=== PATIENT | male | born 1960 | race Caucasian/White ===

== ENCOUNTER 2016-08-15 09:02 | Emergency (ER) | payer MEDICAID ==
[2016-08-15 09:08] VITALS: BP 111/66; PULSE 70; RESP 20; TEMP 97.7
[2016-08-15] MEDS ORDERED: ORPHENADRINE 30 MG/ML 2 ML VIAL IM STA (09:28)
[2016-08-15] MEDS ORDERED: KETOROLAC 60 MG/2 ML VIAL IM STA (09:28)
--- NOTE | 2016-08-15 10:34 | CT ---
EXAMINATION TYPE: CT lumbar spine wo con DATE OF EXAM: 08/15/2016 10:13 AM COMPARISON: MRI lumbar spine 04-18-2014. HISTORY: Low back and bilat leg pain and cramping post trauma yesterday. History of fusion. CT DLP: 889.5 mGycm Automated exposure control for dose reduction was used. FINDINGS: There are 5 lumbar-type vertebra identified. Lumbar spine shows satisfactory alignment without eviden ce of acute fracture or dislocation. There is interval surgery with posterior fusion hardware and dis c spacer noted L4-L5 level. There is more prominent disc herniation L5-S1 level seen on sagittal imag es. Vertebral body heights are fairly well-maintained. There is persistent mild disc space narrowing posteriorly L3-L4 level. There is mild multilevel anterior and lateral spurring. Review of axial images shows a T12-L1, L1-L2, and L2-L3 level to remain within normal limits. Axial images at L3-L4 level show mild broad disc bulge mildly effacing anterior thecal sac mild facet degenerative changes bilaterally. There may be slight progression from prior MRI study noted. Axial images at L4-L5 level show artifact from post surgical change. Spinal canal is felt preserved. There is likely persistent mild to moderate bilateral neural foraminal narrowing. Axial images at L5-S1 level show left paracentral disc protrusion effacing anterolateral thecal sac a nd axial image 70 more prominent versus prior study. There is mild to moderate left-sided neural fora meghan narrowing. Right-sided neural foramen is patent Some prominence of common bile duct near coronal image 8 is unchanged from prior MRI. There is mild t o moderate calcified atherosclerotic change of distal abdominal aorta and pelvic branch vessels. IMPRESSION: NO ACUTE FRACTURE OR DISLOCATION IN THE LUMBAR SPINE. INTERVAL SURGERY L4-L5 LEVEL WITH DISCECTOMY. M ORE PROMINENT DISC HERNIATION L5-S1 LEVEL IS NOW PRESENT.
--- NOTE | 2016-08-15 10:58 | ED ---
Back Pain HPI - General Chief Complaint: Back Pain/Injury Stated Complaint: back pain Time Seen by Provider: 08/15/16 09:23 Source: patient, RN notes reviewed Limitations: no limitations - History of Present Illness Initial Comments: 56-year-old male presents emergency with chief complaint of back pain. Patient is looking about her head and then all of a sudden had some back pain. This happened last night. Patient states that radiated down both legs. Patient denies any loss of bowel or bladder. Patient states that he hasn't had any nausea vomiting dizziness. Patient easily actual fall patient states he was just lifting. Patient does admit to a history of back surgery and states he is on a pain contract with the pain specialist. Patient states that he was concerned due to his increased pain and the fact this feels different than his typical pains without that he should be seen. Patient states is not currently having any other symptoms at this time. Patient denies any recent fever, chills , shortness of breath, chest pain, abdominal pain, nausea vomiting, numbness or tingling, dysuria or hematuria, constipation or diarrhea, headaches or visual changes, or any other current symptoms. - Related Data Home Medications Medication Instructions Recorded Confirmed Aspirin [Adult Low Dose Aspirin EC] 81 mg PO DAILY 07/09/16 08/15/16 Atorvastatin [Lipitor] 40 mg PO DAILY 07/09/16 08/15/16 Clopidogrel [Plavix] 75 mg PO DAILY 07/09/16 08/15/16 Diclofenac Sodium [Voltaren] 75 mg PO DAILY 07/09/16 08/15/16 Gabapentin [Neurontin] 600 mg PO BID 07/09/16 08/15/16 Gemfibrozil [Lopid] 600 mg PO AC-BID 07/09/16 08/15/16 Hydrocodone/Acetaminophen [Lorcet 1 tab PO QID 07/09/16 08/15/16 5-325 mg Tablet] Lisinopril [Zestril] 20 mg PO BID 07/09/16 08/15/16 Metoprolol Tartrate [Lopressor] 50 mg PO BID 07/09/16 08/15/16 Omeprazole [PriLOSEC] 40 mg PO AC-BRKFST 07/09/16 08/15/16 Spironolactone [Aldactone] 12.5 mg PO DAILY 07/09/16 08/15/16 amLODIPine [Norvasc] 5 mg PO BID 07/09/16 08/15/16 metFORMIN HCL [Glucophage] 500 mg PO BID 07/09/16 08/15/16 tiZANidine [Zanaflex] 8 mg PO Q8HR PRN 07/09/16 08/15/16 Pentosan Polysulfate Sodium 100 mg PO TID 08/15/16 08/15/16 [Elmiron] Previous Rx's Medication Instructions Recorded predniSONE 50 mg PO DAILY #5 tab 08/15/16 Allergies Allergy/AdvReac Type Severity Reaction Status Date / Time Penicillins Allergy Rash/Hives Verified 08/15/16 09:20 Review of Systems ROS Statement: Those systems with pertinent positive or pertinent negative responses have been documented in the HPI. ROS Other: All systems not noted in ROS Statement are negative. Past Medical History Past Medical History: Coronary Artery Disease (CAD), Diabetes Mellitus, GERD/ Reflux, Hyperlipidemia, Hypertension, Liver Disease, Myocardial Infarction (PA) , Osteoarthritis (OA) Additional Past Medical History / Comment(s): low back injury, tremors History of Any Multi-Drug Resistant Organisms: None Reported Past Surgical History: Back Surgery, Cholecystectomy, Heart Catheterization With Stent, Orthopedic Surgery Additional Past Surgical History / Comment(s): cardiac stent x 3, right shoulder , back sx-spinal fusion Past Psychological History: Anxiety Smoking Status: Current every day smoker Past Alcohol Use History: None Reported Past Drug Use History: None Reported General Exam - General Exam Comments Initial Comments: General: The patient is awake and alert, in no distress, and does not appear acutely ill. Eye: Pupils are equal, round and reactive to light, extra-ocular movements are intact; there is normal conjunctiva bilaterally. No signs of icterus. Ears, nose, mouth and throat: There are moist mucous membranes. Neck: The neck is supple, there is no tenderness. Cardiovascular: There is a regular rate and rhythm. No murmur, rub or gallop is appreciated. Respiratory: Lungs are clear to auscultation, respirations are non-labored, breath sounds are equal. No wheezes, stridor, rales, or rhonchi. Gastrointestinal: Soft, non-distended, non-tender abdomen without masses or organomegaly noted. There is no rebound or guarding present. No CVA tenderness. Bowel sounds are unremarkable. Back: There is no tenderness to palpation in the midline. Patient has tenderness in the left paraspinal region. There is no obvious deformity. No rashes noted. No saddle anesthesia. No loss of bowel or bladder function. Musculoskeletal: Normal ROM, no tenderness, There is no pedal edema. There is no calf tenderness or swelling. Sensation intact. Pulses equal bilaterally 2+. Neurologically intact. Neurological: CN II-XII intact, There are no obvious motor or sensory deficits. Coordination appears grossly intact. Speech is normal. Skin: Skin is warm and dry and no rashes or lesions are noted. Psychiatric: Cooperative, appropriate mood & affect, normal judgment. Limitations: no limitations Course Vital Signs 08/15/16 09:06 Temperature 97.7 F Pulse Rate 70 Respiratory 20 Rate Blood Pressure 111/66 O2 Sat by Pulse 99 Oximetry Medical Decision Making - Medical Decision Making 56-year-old male presents emergency with chief complaint of back pain. Patient has a history of back surgery. CT is reviewed that does show an increased disc herniation at L5 S1. This time patient received Toradol and Norflex vaccinations improved. We cannot give him narcotics around his activities and a pain contract. We will start patient on steroids. Discussed close follow-up with his doctor this all the patient's questions. He stated that he understood and he is in agreement with the plan. This will be discharged. Disposition Clinical Impression: Lumbar disc herniation Disposition: HOME SELF-CARE Condition: Stable Instructions: Acute Low Back Pain (ED), Lumbar Disc Herniation (ED), Lower Back Exercises (ED) Additional Instructions: Please use medication as discussed. Please follow up with family doctor if symptoms have not improved over the next two days. Please return to the emergency room if your symptoms increase or worsen or for any other concerns. Prescriptions: predniSONE 50 mg PO DAILY #5 tab Referrals: Nighat Henao MD [Primary Care Provider] - 1-2 days Time of Disposition: 11:06
== END 2016-08-15 11:30 | disposition home or self-care (01) ==
LOC: EC 09:02
DX: M51.26 Other intervertebral disc displacement, lumbar region (principal); I25.10 Atherosclerotic heart disease of native coronary artery without angina pectoris; I25.2 Old myocardial infarction; E11.9 Type 2 diabetes mellitus without complications; I10 Essential (primary) hypertension; E78.5 Hyperlipidemia, unspecified; M19.90 Unspecified osteoarthritis, unspecified site; K21.9 Gastro-esophageal reflux disease without esophagitis; K76.9 Liver disease, unspecified; Z79.82 Long term (current) use of aspirin; Z79.899 Other long term (current) drug therapy; Z79.02 Long term (current) use of antithrombotics/antiplatelets; Z79.84 Long term (current) use of oral hypoglycemic drugs; Z88.0 Allergy status to penicillin; Z98.890 Other specified postprocedural states; F17.200 Nicotine dependence, unspecified, uncomplicated; Z88.5 Allergy status to narcotic agent; Z98.1 Arthrodesis status
CPT/HCPCS: 72131; 96372 ×2; 99283; J2360; J1885

== ENCOUNTER 2016-09-12 07:31 | Day surgery (SDC) | payer MEDICAID ==
[2016-09-08 17:56] VITALS: BMI 30.1
[~2016-09-12 07:31] MED LIST: LACTATED RINGERS 1,000 ML IV SCH; LIDOCAINE 1% 20 ML VIAL (10MG/ML) FOR IV START INTRADERMA PRN
[2016-09-12 07:48] VITALS: TEMP 97.7
[2016-09-12] MEDS ORDERED: LIDOCAINE 1% 20 ML VIAL (10MG/ML) FOR IV START INTRADERMA ONE (08:04)
[2016-09-12] MEDS ORDERED: LIDOCAINE 1% INJ 10MG/ML (20 ML MDV) ONE (08:10)
[2016-09-12] MEDS ORDERED: PROPOFOL 10 MG/ML 20 ML VIAL IV ONE (08:10)
--- NOTE | 2016-09-12 08:25 | P.OP ---
Date of Procedure: 09/12/16 Preoperative Diagnosis: EPigastric pain Postoperative Diagnosis: Gastritis Duodentitis Procedure(s) Performed: EGD with biopsy Anesthesia: NINA Surgeon: Trina Mireles Pathology: other Condition: stable Disposition: PACU Indications for Procedure: Epigastric pain History of NSAID intake Diabetic Operative Findings: Mild gastritis, prominent in the body and antrum, No ulcers Stomach had bile , probably mild gastropareisis Mild duodneitis, no bedding Description of Procedure: 1. ESOPHAGOGASTRODUODENOSCOPY 2. BIOPSY USING COLD BIOPSY FORCEPS PROCEDURE DETAILS: A timeout was performed to verify the correct patient and correct procedure. Patient was on continuous vitals and pulse ox monitoring throughout the procedure. He was placed in lateral decubitus position and a bite block was inserted. A well-lubricated endoscope was passed orally. The esophagus was intubated without difficulty. The EGD was passed beyond the pylorus into the first and second portion of the duodenum. No normality is noted in the duodenum. Biopsies were taken from the duodenum, antrum, body, GE junction using cold biopsy forceps. The scope was retroflexed. There was no hiatal hernia or reflux esophagitis. No mass, ulcer or bleeding noted within the gastric lumen. The GE junction is measured at 38 cm from the incisors . The endoscope was gradually withdrawn. No abnormality identified in the esophagus.Patient tolerated the procedure well and was taken to post anesthesia care unit in stable condition.
[2016-09-12 08:35] LABS: Glucose,Whole Blood 108 mg/dL (75-99)
[2016-09-12 08:42] VITALS: BP 101/63
[2016-09-12 08:54] LABS: Glucose,Whole Blood 103 mg/dL (75-99)
[2016-09-12 08:56] VITALS: PULSE 57; RESP 18
== END 2016-09-12 09:00 | disposition home or self-care (01) ==
LOC: ORWHC2ENDO 07:31
PROVIDERS: ATTEND Surgery
DX: K29.50 Unspecified chronic gastritis without bleeding (principal); K29.80 Duodenitis without bleeding; K21.9 Gastro-esophageal reflux disease without esophagitis; I25.10 Atherosclerotic heart disease of native coronary artery without angina pectoris; I10 Essential (primary) hypertension; E78.5 Hyperlipidemia, unspecified; E11.9 Type 2 diabetes mellitus without complications; I25.2 Old myocardial infarction; F17.200 Nicotine dependence, unspecified, uncomplicated; Z88.0 Allergy status to penicillin; Z79.84 Long term (current) use of oral hypoglycemic drugs; Z79.02 Long term (current) use of antithrombotics/antiplatelets; Z79.899 Other long term (current) drug therapy; Z95.5 Presence of coronary angioplasty implant and graft
CPT/HCPCS: 43239; 88305; 88342; J2001; J2704

== ENCOUNTER 2016-12-18 16:25 | Emergency (ER) | payer MEDICAID ==
[2016-12-18 16:34] VITALS: TEMP 98.9
[2016-12-18] MEDS ORDERED: SODIUM CHLORIDE 0.9% 500 ML IV STA (16:48)
[2016-12-18] MEDS ORDERED: SODIUM CHLORIDE 0.9% 1,000 ML IV STA ×3 (16:48→17:35)
[2016-12-18 16:59] LABS: Basophils % (A) 0 %; CH 33.7; CHCM 33.9; Eosinophils # (A) 0.1 k/uL (0-0.7); Eosinophils % (A) 1 %; HCT 39.1 % (39.0-53.0); HDW 2.29; HGB 13.3 gm/dL (13.0-17.5); Luc # (Auto) 0.13; Luc % (Auto) 2; Lymphocytes # (A) 1.8 k/uL (1.0-4.8); Lymphocytes % (A) 31 %; MCH 33.8 pg (25.0-35.0); MCHC 33.9 g/dL (31.0-37.0); MCV 99.7 fL (80.0-100.0); Mean Platelet Volume 8.1; Monocytes # (A) 0.3 k/uL (0-1.0); Monocytes % (A) 6 %; Neutrophils # (A) 3.5 k/uL (1.3-7.7); Neutrophils % (A) 60 %; RBC 3.92 m/uL (4.30-5.90); RDW 13.2 % (11.5-15.5); WBC 5.9 k/uL (3.8-10.6); WBC (Perox) 6.02
[2016-12-18 17:07] LABS: Partial Thromboplastin Time 22.5 sec (22.0-30.0); Prothrombin Time 10.1 sec (9.0-12.0)
[2016-12-18 17:10] LABS: ALT 31 U/L (21-72); AST 31 U/L (17-59); Alkaline Phosphatase 65 U/L (38-126); Anion Gap 10 mmol/L; Blood Urea Nitrogen 26 mg/dL (9-20); Calcium 9.1 mg/dL (8.4-10.2); Carbon Dioxide 22 mmol/L (22-30); Chloride 111 mmol/L (98-107); Glucose 137 mg/dL (74-99); Non-African American GFR(MDRD) 52 (>60 ml/min/1.73 sqM); Potassium 4.8 mmol/L (3.5-5.1); Sodium 143 mmol/L (137-145); Total Bilirubin 0.5 mg/dL (0.2-1.3)
--- NOTE | 2016-12-18 17:10 | XR ---
EXAMINATION TYPE: XR chest 2V DATE OF EXAM: 12/18/2016 COMPARISON: NONE HISTORY: Chest pain TECHNIQUE: Frontal and lateral views of the chest are obtained. FINDINGS: There is no heart failure nor confluent pneumonic infiltrate. Heart is top normal in size. There are no hilar masses. There is no pleural effusion. There are chest leads. Bony thorax is intac t. IMPRESSION: No active cardiopulmonary disease. Right shoulder surgery noted.
[2016-12-18 17:13] LABS: Creatine Kinase 457 U/L (55-170)
[2016-12-18 17:26] LABS: Troponin I <0.012 ng/mL (0.000-0.034)
[2016-12-18 17:28] LABS: Creatine Kinase MB 3.9 ng/mL (0.0-2.4)
--- NOTE | 2016-12-18 17:35 | ED ---
General Adult HPI - General Chief complaint: Chest Pain Stated complaint: chest pain Time Seen by Provider: 12/18/16 16:39 Source: patient, RN notes reviewed, old records reviewed Mode of arrival: wheelchair Limitations: no limitations - History of Present Illness Initial comments: This is a 56 male to the ED with chest pain, weakness, sob, fatigue. Patient has extensive history of heart disease and sob. Patient was doing yard work and gardening, patient became increasingly fatigued and weak and sob. No fever no chills, no revent illnesses. Patient denies signifivant sob at this point no RAZO or abdominal pain. MD Complaint: weakness fatigue and chest pain -: hour(s) Severity scale (1-10): 7 Consistency: constant Improves with: none, rest Worsens with: movement Associated Symptoms: confusion, diaphoresis, loss of appetite, shortness of breath - Related Data Home Medications Medication Instructions Recorded Confirmed Atorvastatin [Lipitor] 40 mg PO HS 07/09/16 12/18/16 Clopidogrel [Plavix] 75 mg PO DAILY 07/09/16 12/18/16 Gabapentin [Neurontin] 300 mg PO BID 07/09/16 12/18/16 Lisinopril [Zestril] 20 mg PO BID 07/09/16 12/18/16 Metoprolol Tartrate [Lopressor] 50 mg PO BID 07/09/16 12/18/16 Omeprazole [PriLOSEC] 40 mg PO AC-BRKFST 07/09/16 12/18/16 Spironolactone [Aldactone] 12.5 mg PO DAILY 07/09/16 12/18/16 amLODIPine [Norvasc] 5 mg PO BID 07/09/16 12/18/16 metFORMIN HCL [Glucophage] 500 mg PO BID 07/09/16 12/18/16 tiZANidine [Zanaflex] 4 mg PO TID 07/09/16 12/18/16 Pentosan Polysulfate Sodium 100 mg PO TID 08/15/16 12/18/16 [Elmiron] Buprenorphine [Butrans 20 MCG/HOUR] 1 patch TRANSDERM BRUNO 09/08/16 12/18/16 HYDROcodone/APAP 7.5-325MG [Banks 1 tab PO QID PRN 09/08/16 12/18/16 7.5-325] Aspirin 325 mg PO DAILY 12/18/16 12/18/16 Cholecalciferol [Vitamin D3] 400 unit PO DAILY 12/18/16 12/18/16 [place]-3/Dha/Epa/Fish Oil [Fish Oil 1 cap PO DAILY 12/18/16 12/18/16 500 mg Softgel] Allergies Allergy/AdvReac Type Severity Reaction Status Date / Time Bleach (Sodium Hypochlorite) Allergy Rash/Hives Verified 12/18/16 17:03 Penicillins Allergy Rash/Hives Verified 12/18/16 17:03 Review of Systems ROS Statement: Those systems with pertinent positive or pertinent negative responses have been documented in the HPI. ROS Other: All systems not noted in ROS Statement are negative. Past Medical History Past Medical History: Coronary Artery Disease (CAD), Diabetes Mellitus, GERD/ Reflux, GI Bleed, Hyperlipidemia, Hypertension, Liver Disease, Myocardial Infarction ([place]), Osteoarthritis (OA) Additional Past Medical History / Comment(s): HX ELEV LFT YEARS AGO. HX Low Back injury. Tremors IN HANDS. INTERSTITIAL CYSTITIS. "GAS PAINS IN CHEST/ RIBCAGE, ULQ ABD, PROB IRRITATED BY NSAIDS, ASPIRIN, WHICH I QUIT"; HAD BLOOD IN STOOL FEW WEEKS AGO. Last Myocardial Infarction Date:: 2001 History of Any Multi-Drug Resistant Organisms: None Reported Past Surgical History: Back Surgery, Cholecystectomy, Heart Catheterization With Stent, Hernia Repair, Orthopedic Surgery Additional Past Surgical History / Comment(s): Cardiac Stent x 3 - 2 IN 2001, 1 IN 2003 EST. Right shoulder. BACK, spinal fusion. COLONOSCOPY 2009. ORIF RT LOWER LEG. Past Anesthesia/Blood Transfusion Reactions: No Reported Reaction Date of Last Stent Placement:: 2003 Past Psychological History: Anxiety Additional Psychological History / Comment(s): PATIENT DENIES Smoking Status: Current every day smoker Past Alcohol Use History: None Reported Additional Past Alcohol Use History / Comment(s): SMOKED ON/OFF SINCE AGE 11, 1 PPD. Past Drug Use History: None Reported - Past Family History Mother Family Medical History: Cancer General Exam Limitations: no limitations General appearance: alert, in no apparent distress Head exam: Present: atraumatic, normocephalic, normal inspection Eye exam: Present: normal appearance, PERRL, EOMI. Absent: scleral icterus, conjunctival injection, periorbital swelling ENT exam: Present: normal exam, mucous membranes moist Neck exam: Present: normal inspection. Absent: tenderness, meningismus, lymphadenopathy Respiratory exam: Present: normal lung sounds bilaterally. Absent: respiratory distress, wheezes, rales, rhonchi, stridor Cardiovascular Exam: Present: regular rate, normal rhythm, normal heart sounds. Absent: systolic murmur, diastolic murmur, rubs, gallop, clicks GI/Abdominal exam: Present: soft, normal bowel sounds. Absent: distended, tenderness, guarding, rebound, rigid Extremities exam: Present: normal inspection, full ROM, normal capillary refill. Absent: tenderness, pedal edema, joint swelling, calf tenderness Back exam: Present: normal inspection Neurological exam: Present: alert, oriented X3, CN II-XII intact Psychiatric exam: Present: normal affect, normal mood Skin exam: Present: warm, dry, intact, normal color. Absent: rash Course Vital Signs 12/18/16 12/18/16 12/18/16 16:32 17:32 17:38 Temperature 98.9 F Pulse Rate 68 50 L 54 L Respiratory 16 20 20 Rate Blood Pressure 101/59 76/49 84/53 O2 Sat by Pulse 98 97 97 Oximetry 12/18/16 18:21 Temperature 98.9 F Pulse Rate 62 Respiratory 20 Rate Blood Pressure 106/84 O2 Sat by Pulse 97 Oximetry EKG Findings - EKG Comments: EKG Findings:: EKG show nsr rate of 60 pr 208 qrs 88qtc 400 Medical Decision Making - Medical Decision Making 30 [facility] with chest pain, patient advised to stay in the hospital for evaluation by cardiology secondary to low blood pressure 1 heart rate, patient refuses to stay in hospital. Able to make his own decisions, states he currently feels well without chest pain - Lab Data Result diagrams: 12/18/16 16:45 12/18/16 16:45 Lab Results 12/18/16 12/18/16 12/18/16 Range/Units 16:45 16:45 16:45 WBC 5.9 (3.8-10.6) k/uL RBC 3.92 L (4.30-5.90) m/uL Hgb 13.3 (13.0-17.5) gm/dL Hct 39.1 (39.0-53.0) % MCV 99.7 (80.0-100.0) fL MCH 33.8 (25.0-35.0) pg MCHC 33.9 (31.0-37.0) g/dL RDW 13.2 (11.5-15.5) % Plt Count 163 (150-450) k/uL Neutrophils % 60 % Lymphocytes % 31 % Monocytes % 6 % Eosinophils % 1 % Basophils % 0 % Neutrophils # 3.5 (1.3-7.7) k/uL Lymphocytes # 1.8 (1.0-4.8) k/uL Monocytes # 0.3 (0-1.0) k/uL Eosinophils # 0.1 (0-0.7) k/uL Basophils # 0.0 (0-0.2) k/uL PT (9.0-12.0) sec INR (<1.1) APTT (22.0-30.0) sec Sodium 143 (137-145) mmol/L Potassium 4.8 (3.5-5.1) mmol/L Chloride 111 H (98-107) mmol/L Carbon Dioxide 22 (22-30) mmol/L Anion Gap 10 mmol/L BUN 26 H (9-20) mg/dL Creatinine 1.40 H (0.66-1.25) mg/dL Est GFR (MDRD) Af Amer >60 (>60 ml/min/1.73 sqM) Est GFR (MDRD) Non-Af 52 (>60 ml/min/1.73 sqM) Glucose 137 H (74-99) mg/dL Calcium 9.1 (8.4-10.2) mg/dL Magnesium 2.0 (1.6-2.3) mg/dL Total Bilirubin 0.5 (0.2-1.3) mg/dL AST 31 (17-59) U/L ALT 31 (21-72) U/L Alkaline Phosphatase 65 (38-126) U/L Total Creatine Kinase 457 H (55-170) U/L CK-MB (CK-2) 3.9 H* (0.0-2.4) ng/mL CK-MB (CK-2) Rel Index 0.9 Troponin I <0.012 (0.000-0.034) ng/mL NT-Pro-B Natriuret Pep pg/mL Total Protein 7.0 (6.3-8.2) g/dL Albumin 4.4 (3.5-5.0) g/dL Lipase 115 (23-300) U/L 12/18/16 12/18/16 Range/Units 16:45 16:45 WBC (3.8-10.6) k/uL RBC (4.30-5.90) m/uL Hgb (13.0-17.5) gm/dL Hct (39.0-53.0) % MCV (80.0-100.0) fL MCH (25.0-35.0) pg MCHC (31.0-37.0) g/dL RDW (11.5-15.5) % Plt Count (150-450) k/uL Neutrophils % % Lymphocytes % % Monocytes % % Eosinophils % % Basophils % % Neutrophils # (1.3-7.7) k/uL Lymphocytes # (1.0-4.8) k/uL Monocytes # (0-1.0) k/uL Eosinophils # (0-0.7) k/uL Basophils # (0-0.2) k/uL PT 10.1 (9.0-12.0) sec INR 1.0 (<1.1) APTT 22.5 (22.0-30.0) sec Sodium (137-145) mmol/L Potassium (3.5-5.1) mmol/L Chloride (98-107) mmol/L Carbon Dioxide (22-30) mmol/L Anion Gap mmol/L BUN (9-20) mg/dL Creatinine (0.66-1.25) mg/dL Est GFR (MDRD) Af Amer (>60 ml/min/1.73 sqM) Est GFR (MDRD) Non-Af (>60 ml/min/1.73 sqM) Glucose (74-99) mg/dL Calcium (8.4-10.2) mg/dL Magnesium (1.6-2.3) mg/dL Total Bilirubin (0.2-1.3) mg/dL AST (17-59) U/L ALT (21-72) U/L Alkaline Phosphatase (38-126) U/L Total Creatine Kinase (55-170) U/L CK-MB (CK-2) (0.0-2.4) ng/mL CK-MB (CK-2) Rel Index Troponin I (0.000-0.034) ng/mL NT-Pro-B Natriuret Pep 150 pg/mL Total Protein (6.3-8.2) g/dL Albumin (3.5-5.0) g/dL Lipase (23-300) U/L - Radiology Data Radiology results: report reviewed (Chest x-ray is negative for acute disease), image reviewed Critical Care Time Critical Care Time: Yes Total Critical Care Time: 31 Disposition Clinical Impression: Chest pain, Weakness Disposition: Left Against Medical Advice Condition: Good Instructions: Chest Pain (ED), Weakness (ED) Referrals: Nighat Henao MD [Primary Care Provider] - 1-2 days
[2016-12-18 17:42] VITALS: RESP 20
[2016-12-18 18:22] VITALS: BP 106/84; PULSE 62
== END 2016-12-18 18:30 | disposition left against medical advice (07) ==
LOC: EC 16:25
DX: R07.9 Chest pain, unspecified (principal); R06.02 Shortness of breath; R53.1 Weakness; R53.83 Other fatigue; R41.0 Disorientation, unspecified; R61 Generalized hyperhidrosis; R63.0 Anorexia; E78.5 Hyperlipidemia, unspecified; I10 Essential (primary) hypertension; E11.9 Type 2 diabetes mellitus without complications; I25.10 Atherosclerotic heart disease of native coronary artery without angina pectoris; K21.9 Gastro-esophageal reflux disease without esophagitis; M19.90 Unspecified osteoarthritis, unspecified site; N30.10 Interstitial cystitis (chronic) without hematuria; I25.2 Old myocardial infarction; F17.200 Nicotine dependence, unspecified, uncomplicated; Z79.02 Long term (current) use of antithrombotics/antiplatelets; Z79.82 Long term (current) use of aspirin; Z79.84 Long term (current) use of oral hypoglycemic drugs; Z79.899 Other long term (current) drug therapy; Z88.0 Allergy status to penicillin; Z91.09 Other allergy status, other than to drugs and biological substances; Z95.5 Presence of coronary angioplasty implant and graft; Z86.69 Personal history of other diseases of the nervous system and sense organs
CPT/HCPCS: 36415; 71020; 80053; 82550; 82553; 83690; 83735; 83880; 84484; 85025; 85610; 85730; 93005; 96360; 99285

== ENCOUNTER → 2017-01-31 | Outpatient (CLI) | payer MEDICAID ==
--- NOTE | 2017-01-31 16:00 | CT ---
EXAMINATION TYPE: CT lumbar spine wo con DATE OF EXAM: 01/31/2017 COMPARISON: August 15, 2016 HISTORY: Low back pain CT DLP: 1910 mGycm CONTRAST: Unenhanced CT of the lumbar spine is performed. Unenhanced CT of the lumbar spine was performed. Bone and soft tissue window settings are submitted as well as coronal and sagittal reconstructions. L1-L2: Normal disc space height. No disc herniation protrusion or central stenosis. No facet joint arthropathy. No evidence for foraminal encroachment. L2-L3: Normal disc space height. No disc herniation protrusion or central stenosis. No facet joint arthropathy. No evidence for foraminal encroachment. L3-L4: There is mild degenerative disc space narrowing. Mild broad-based disc bulge. Mild effacement ventral thecal sac. No evidence for central stenosis. Facet joint arthropathy. No significant foramin al encroachment. L4-L5: Changes of fusion with intervertebral body spacer unchanged in position. Pedicular screws are in place. Alignment is stable. Streak artifact limits evaluation. Mild bilateral foraminal encroachme nt persists. L5-S1: Moderate disc space narrowing. Broad-based left paracentral disc herniation effaces the ventra l thecal sac. Left lateral recess stenosis and left foraminal encroachment. Overall appearance is unc hanged. No central stenosis. No paraspinal masses are identified. Lumbar segments are free if fracture. IMPRESSION: 1. Stable postoperative changes at L4-5. 2. Stable left paracentral disc herniation at L5-S1.
== END | disposition home or self-care (01) ==
LOC: RADCTMAIN 15:25
PROVIDERS: ATTEND Nurse Practitioner
DX: M51.27 Other intervertebral disc displacement, lumbosacral region (principal); Z98.1 Arthrodesis status
CPT/HCPCS: 72131

== ENCOUNTER → 2017-03-09 | Outpatient (CLI) | payer MEDICAID ==
--- NOTE | 2017-03-09 18:53 | MR ---
EXAMINATION TYPE: MR lumbar spine wo con DATE OF EXAM: 03/09/2017 COMPARISON: CT scan 01/31/2017, MRI lumbar spine 04/18/2014 HISTORY: LBP, BLE radic x 3 years, work related accident TECHNIQUE: T1 and T2 axial and sagittal images of the lumbar spine are submitted. FINDINGS: There is no abnormal signal seen within the visualized spinal cord or paraspinal soft tissu es. At T12-L1 there is circumferential disc bulging but no canal stenosis or foraminal encroachment. At L1-2 there is is degenerative changes spine and circumferential disc bulging but no canal stenosis . Mild hypertrophic change of the facet joints. No disc herniation or foraminal encroachment. At L2-3 there is mild facet arthropathy but no disc herniation, canal stenosis, or foraminal encroach ment. At L3-4 there is broad-based central disc bulging with mild effacement of thecal sac. There is hypert rophy of the facet joints and mild bilateral foraminal encroachment and borderline canal stenosis At L4-5 there is postsurgical change with discogenic marrow changes. No focal herniation or canal brenie nosis. Neural foramina patent. At L5-S1 there is central left paracentral disc disc herniation with mild effacement of thecal sac. M ild bilateral foraminal encroachment with facet arthropathy. IMPRESSION: 1. Focal central left paracentral disc herniation L5-S1 with mild effacement of thecal sac. Facet art hropathy contributes to bilateral mild foraminal encroachment. 2. Postsurgical change L4-5 with no canal stenosis or focal herniation 3. Multilevel disc bulging as discussed above with borderline canal stenosis at L3-4 with mild bilate ral foraminal encroachment.
== END | disposition home or self-care (01) ==
LOC: RADMRIMAIN 16:34
PROVIDERS: ATTEND Orthopaedic Surgery Orthopaedic Surgery of the Spine
DX: M48.06 Spinal stenosis, lumbar region (principal); M51.26 Other intervertebral disc displacement, lumbar region; M46.86 Other specified inflammatory spondylopathies, lumbar region
CPT/HCPCS: 72148

== ENCOUNTER 2017-05-15 20:40 | Observation (INO) | payer MEDICAID ==
[2017-05-15] MEDS ORDERED: NITROGLYCERIN OINT 1 INCH/GM PACKET TOPICAL STA (20:47)
[2017-05-15] MEDS ORDERED: HEPARIN SODIUM,PORCINE/D5W PMX 25,000 UNIT in DEXTROSE/WATER 1 500ML.BAG IV STA (20:47)
[2017-05-15] MEDS ORDERED: HEPARIN SODIUM,PORCINE 5,000 UNIT/ML 1 ML VIAL IV STA (20:47)
--- NOTE | 2017-05-15 20:51 | ED ---
Chest Pain HPI - General Chief Complaint: Chest Pain Stated Complaint: chest pain Time Seen by Provider: 05/15/17 20:40 Source: patient, EMS, RN notes reviewed Mode of arrival: EMS Limitations: no limitations - History of Present Illness Initial Comments: this is a 56-year-old male history of heart disease who states he had the onset around 12 noon today of midsternal chest pain that was initially dull later sometimes sharp initially was 8/10 and went on to 5/10 after the patient administered his own aspirin he was given nitroglycerin by EMS also 2.5 mg of morphine. He has any fevers chills nausea vomiting sweats or other symptoms. MD Complaint: chest pain - Related Data Home Medications Medication Instructions Recorded Confirmed Atorvastatin [Lipitor] 40 mg PO HS 07/09/16 05/15/17 Clopidogrel [Plavix] 75 mg PO DAILY 07/09/16 05/15/17 Lisinopril [Zestril] 20 mg PO BID 07/09/16 05/15/17 Metoprolol Tartrate [Lopressor] 50 mg PO BID 07/09/16 05/15/17 Omeprazole [PriLOSEC] 20 mg PO BID 07/09/16 05/15/17 Spironolactone [Aldactone] 12.5 mg PO DAILY 07/09/16 05/15/17 metFORMIN HCL [Glucophage] 500 mg PO DAILY 07/09/16 05/15/17 tiZANidine [Zanaflex] 4 mg PO TID 07/09/16 05/15/17 Pentosan Polysulfate Sodium 100 mg PO TID 08/15/16 05/15/17 [Elmiron] HYDROcodone/APAP 7.5-325MG [[place] 1 tab PO QID PRN 09/08/16 05/15/17 7.5-325] Cholecalciferol [Vitamin D3] 400 unit PO DAILY 12/18/16 05/15/17 [place]-3/Dha/Epa/Fish Oil [Fish Oil 1 cap PO DAILY 12/18/16 05/15/17 500 mg Softgel] Albuterol Nebulized [Ventolin 2.5 mg INHALATION RT-Q6H PRN 05/15/17 05/15/17 Nebulized] Aspirin 81 mg PO DAILY 05/15/17 05/15/17 Gabapentin 600 mg PO QID 05/15/17 05/15/17 amLODIPine [Norvasc] 10 mg PO DAILY 05/15/17 05/15/17 Allergies Allergy/AdvReac Type Severity Reaction Status Date / Time Bleach (Sodium Hypochlorite) Allergy Rash/Hives Verified 05/15/17 21:36 Penicillins Allergy Rash/Hives Verified 05/15/17 21:36 Review of Systems ROS Statement: Those systems with pertinent positive or pertinent negative responses have been documented in the HPI. ROS Other: All systems not noted in ROS Statement are negative. EKG Findings - EKG Results: EKG: interpreted by ERMD, sinus rhythm (sinus rhythm rate is 61. Interval 200 QRS duration 96 QT since QTC of 414/416 low-voltage QRS inferior infarct of undetermined age poor R-wave progression) Past Medical History Past Medical History: Coronary Artery Disease (CAD), Diabetes Mellitus, GERD/ Reflux, GI Bleed, Hyperlipidemia, Hypertension, Liver Disease, Myocardial Infarction ([place]), Osteoarthritis (OA) Additional Past Medical History / Comment(s): HX ELEV LFT YEARS AGO. HX Low Back injury. Tremors IN HANDS. INTERSTITIAL CYSTITIS. "GAS PAINS IN CHEST/ RIBCAGE, ULQ ABD, PROB IRRITATED BY NSAIDS, ASPIRIN, WHICH I QUIT"; HAD BLOOD IN STOOL FEW WEEKS AGO. Last Myocardial Infarction Date:: 2001 History of Any Multi-Drug Resistant Organisms: None Reported Past Surgical History: Back Surgery, Cholecystectomy, Heart Catheterization With Stent, Hernia Repair, Orthopedic Surgery Additional Past Surgical History / Comment(s): Cardiac Stent x 3 - 2 IN 2001, 1 IN 2003 EST. Right shoulder. BACK, spinal fusion. COLONOSCOPY 2009. ORIF RT LOWER LEG. Past Anesthesia/Blood Transfusion Reactions: No Reported Reaction Date of Last Stent Placement:: 2003 Past Psychological History: Anxiety Smoking Status: Heavy tobacco smoker Past Alcohol Use History: None Reported Past Drug Use History: None Reported - Past Family History Mother Family Medical History: Cancer General Exam - General Exam Comments Initial Comments: this is a well-developed well-nourished awake alert oriented history male he is anxious Limitations: no limitations General appearance: alert, in no apparent distress Head exam: Present: atraumatic, normocephalic, normal inspection Eye exam: Present: normal appearance, PERRL, EOMI. Absent: scleral icterus, conjunctival injection, periorbital swelling ENT exam: Present: normal exam, mucous membranes moist Neck exam: Present: normal inspection. Absent: tenderness, meningismus, lymphadenopathy Respiratory exam: Present: normal lung sounds bilaterally. Absent: respiratory distress, wheezes, rales, rhonchi, stridor Cardiovascular Exam: Present: regular rate, normal rhythm, normal heart sounds. Absent: systolic murmur, diastolic murmur, rubs, gallop, clicks GI/Abdominal exam: Present: soft, normal bowel sounds. Absent: distended, tenderness, guarding, rebound, rigid Extremities exam: Present: normal inspection, full ROM, normal capillary refill. Absent: tenderness, pedal edema, joint swelling, calf tenderness Back exam: Present: normal inspection Neurological exam: Present: alert, oriented X3, CN II-XII intact Psychiatric exam: Present: normal affect, normal mood Skin exam: Present: warm, dry, intact, normal color. Absent: rash Course Vital Signs 05/15/17 05/15/17 20:43 21:43 Temperature 98.1 F Pulse Rate 63 65 Respiratory 18 18 Rate Blood Pressure 134/82 100/59 O2 Sat by Pulse 99 98 Oximetry - Reevaluation(s) Reevaluation #1: 05/15/17 22:05 Patient is a is feeling somewhat better. Chest Pain MDM - MDM imaging shows no acute findings I did discuss findings the patient's presentation is consistent with angina though the initial enzymes are normal as is initial EKG. Patient will be admitted with cardiology consultation. Case is discussed with the hospitalist group Critical Care Time Critical Care Time: Yes Critical Care Time: 31 minutes of critical care time which includes initial evaluation of the EMS run and discussed with paramedics history physical labs x-rays several reevaluation the patient response to therapy discussion with the admitting service admission orders and documentation the above. Disposition Clinical Impression: Chest pain, Unstable angina pectoris Disposition: ADMITTED IP TO THIS HOSP Condition: Stable Referrals: Nighat Henao MD [Primary Care Provider] - 1-2 days
[2017-05-15 21:14] LABS: Basophils % (A) 0 %; CH 33.8; CHCM 34.2; Eosinophils # (A) 0.1 k/uL (0-0.7); Eosinophils % (A) 1 %; HCT 39.2 % (39.0-53.0); HDW 2.39; HGB 13.1 gm/dL (13.0-17.5); Luc # (Auto) 0.14; Luc % (Auto) 2; Lymphocytes % (A) 23 %; MCH 33.2 pg (25.0-35.0); MCHC 33.5 g/dL (31.0-37.0); Monocytes # (A) 0.6 k/uL (0-1.0); Monocytes % (A) 7 %; Neutrophils # (A) 6.1 k/uL (1.3-7.7); Neutrophils % (A) 68 %; RBC 3.96 m/uL (4.30-5.90); RDW 12.2 % (11.5-15.5); WBC 8.9 k/uL (3.8-10.6); WBC (Perox) 8.74
[2017-05-15 21:28] LABS: Creatine Kinase 315 U/L (55-170); Partial Thromboplastin Time 22.2 sec (22.0-30.0); Potassium 4.5 mmol/L (3.5-5.1); Prothrombin Time 10.1 sec (9.0-12.0); Total Bilirubin 0.3 mg/dL (0.2-1.3); Total Protein 7.3 g/dL (6.3-8.2)
--- NOTE | 2017-05-15 21:28 | XR ---
EXAMINATION TYPE: XR chest 2V DATE OF EXAM: 05/15/2017 COMPARISON: EXAMINATION TYPE: XR chest 2V DATE OF EXAM: 05/15/2017 COMPARISON: 12/18/2016 HISTORY: Chest pain TECHNIQUE: 2 views FINDINGS: Heart and mediastinum appear normal. Lungs are clear. There is no sign of pleural effusion. There are chest leads. Bony thorax appears intact. IMPRESSION: No active cardiopulmonary disease. No change.
[2017-05-15 21:40] LABS: Troponin I <0.012 ng/mL (0.000-0.034)
[2017-05-15 22:06] LABS: Creatine Kinase MB 3.1 ng/mL (0.0-2.4)
[2017-05-15] MEDS ORDERED: NITROGLYCERIN SL TABS 0.4 MG TAB SUBLINGUAL PRN (22:07)
[2017-05-15] MEDS ORDERED: ALBUTEROL NEBULIZED 2.5 MG/3 ML INHALATION PRN (22:10)
--- NOTE | 2017-05-15 22:13 | ED ---
Medical Decision Making - Medical Decision Making I did have a discussion with patient on several occasions regarding the cessation of smoking and the need to this did discuss the benefits of smoking cessation. The total conversation lasted 3.1 minutes. - Lab Data Result diagrams: 05/15/17 21:00 05/15/17 21:00 Lab Results 05/15/17 05/15/17 05/15/17 Range/Units 21:00 21:00 21:00 WBC 8.9 (3.8-10.6) k/uL RBC 3.96 L (4.30-5.90) m/uL Hgb 13.1 (13.0-17.5) gm/dL Hct 39.2 (39.0-53.0) % MCV 99.0 (80.0-100.0) fL MCH 33.2 (25.0-35.0) pg MCHC 33.5 (31.0-37.0) g/dL RDW 12.2 (11.5-15.5) % Plt Count 193 (150-450) k/uL Neutrophils % 68 % Lymphocytes % 23 % Monocytes % 7 % Eosinophils % 1 % Basophils % 0 % Neutrophils # 6.1 (1.3-7.7) k/uL Lymphocytes # 2.0 (1.0-4.8) k/uL Monocytes # 0.6 (0-1.0) k/uL Eosinophils # 0.1 (0-0.7) k/uL Basophils # 0.0 (0-0.2) k/uL PT (9.0-12.0) sec INR (<1.2) APTT (22.0-30.0) sec D-Dimer (<0.60) mg/L FEU Sodium 140 (137-145) mmol/L Potassium 4.5 (3.5-5.1) mmol/L Chloride 109 H (98-107) mmol/L Carbon Dioxide 22 (22-30) mmol/L Anion Gap 9 mmol/L BUN 23 H (9-20) mg/dL Creatinine 1.52 H (0.66-1.25) mg/dL Est GFR (MDRD) Af Amer 58 (>60 ml/min/1.73 sqM) Est GFR (MDRD) Non-Af 48 (>60 ml/min/1.73 sqM) Glucose 139 H (74-99) mg/dL Calcium 9.0 (8.4-10.2) mg/dL Magnesium 2.0 (1.6-2.3) mg/dL Total Bilirubin 0.3 (0.2-1.3) mg/dL AST 25 (17-59) U/L ALT 34 (21-72) U/L Alkaline Phosphatase 59 (38-126) U/L Total Creatine Kinase 315 H (55-170) U/L CK-MB (CK-2) 3.1 H* (0.0-2.4) ng/mL CK-MB (CK-2) Rel Index 1.0 Troponin I <0.012 (0.000-0.034) ng/mL NT-Pro-B Natriuret Pep pg/mL Total Protein 7.3 (6.3-8.2) g/dL Albumin 4.4 (3.5-5.0) g/dL Amylase 32 (30-110) U/L Lipase 97 (23-300) U/L 05/15/17 05/15/17 Range/Units 21:00 21:00 WBC (3.8-10.6) k/uL RBC (4.30-5.90) m/uL Hgb (13.0-17.5) gm/dL Hct (39.0-53.0) % MCV (80.0-100.0) fL MCH (25.0-35.0) pg MCHC (31.0-37.0) g/dL RDW (11.5-15.5) % Plt Count (150-450) k/uL Neutrophils % % Lymphocytes % % Monocytes % % Eosinophils % % Basophils % % Neutrophils # (1.3-7.7) k/uL Lymphocytes # (1.0-4.8) k/uL Monocytes # (0-1.0) k/uL Eosinophils # (0-0.7) k/uL Basophils # (0-0.2) k/uL PT 10.1 (9.0-12.0) sec INR 1.0 (<1.2) APTT 22.2 (22.0-30.0) sec D-Dimer 0.43 (<0.60) mg/L FEU Sodium (137-145) mmol/L Potassium (3.5-5.1) mmol/L Chloride (98-107) mmol/L Carbon Dioxide (22-30) mmol/L Anion Gap mmol/L BUN (9-20) mg/dL Creatinine (0.66-1.25) mg/dL Est GFR (MDRD) Af Amer (>60 ml/min/1.73 sqM) Est GFR (MDRD) Non-Af (>60 ml/min/1.73 sqM) Glucose (74-99) mg/dL Calcium (8.4-10.2) mg/dL Magnesium (1.6-2.3) mg/dL Total Bilirubin (0.2-1.3) mg/dL AST (17-59) U/L ALT (21-72) U/L Alkaline Phosphatase (38-126) U/L Total Creatine Kinase (55-170) U/L CK-MB (CK-2) (0.0-2.4) ng/mL CK-MB (CK-2) Rel Index Troponin I (0.000-0.034) ng/mL NT-Pro-B Natriuret Pep 107 pg/mL Total Protein (6.3-8.2) g/dL Albumin (3.5-5.0) g/dL Amylase (30-110) U/L Lipase (23-300) U/L Disposition Clinical Impression: Chest pain, Unstable angina pectoris, Smoking Disposition: ADMITTED IP TO THIS [facility] Condition: Stable Referrals: Nighat Henao MD [Primary Care Provider] - 1-2 days
[2017-05-15] MEDS ORDERED: SODIUM CHLORIDE 0.9% 1,000 ML IV SCH (22:15)
[2017-05-15] MEDS: HYDROcodone/APAP 7.5-325MG 1 EACH TAB PO PRN ×2 (22:50→23:06)
[2017-05-15 23:41] VITALS: BMI 30.8
[2017-05-16] MEDS ORDERED: NITROGLYCERIN OINT 1 INCH/GM PACKET TOPICAL SCH
[2017-05-16 04:48] LABS: Creatine Kinase 203 U/L (55-170)
[2017-05-16 05:01] LABS: Troponin I <0.012 ng/mL (0.000-0.034)
[2017-05-16 05:07] LABS: Cholesterol 133 mg/dL (<200); HDL Cholesterol 30 mg/dL (40-60)
[2017-05-16 05:11] LABS: Creatine Kinase MB 2.5 ng/mL (0.0-2.4)
[2017-05-16] MEDS: HYDROcodone/APAP 7.5-325MG 1 EACH TAB PO PRN ×4 (07:12→23:14)
[2017-05-16 07:45] LABS: Glucose,Whole Blood 128 mg/dL (75-99)
[2017-05-16] MEDS ORDERED: LISINOPRIL 20 MG TAB PO SCH (09:00)
[2017-05-16] MEDS ORDERED: SPIRONOLACTONE 25 MG TAB PO SCH (09:00)
[2017-05-16] MEDS ORDERED: amLODIPine 10 MG TAB PO SCH (09:00)
[2017-05-16] MEDS ORDERED: ASPIRIN 325 MG TAB PO SCH (09:00)
[2017-05-16] MEDS ORDERED: NON-FORMULARY DRUG (Omega-3/Dha/Epa/Fish Oil [Fish Oil 500 Mg Softgel] 1 CAP) PO SCH (09:00)
[2017-05-16] MEDS ORDERED: ASPIRIN 81 MG PO SCH (09:08)
[2017-05-16] MEDS: INSULIN LISPRO (humaLOG) 300 UNIT/3 ML VIAL SQ SCH ×4 (09:25→21:18)
[2017-05-16] MEDS: PANTOPRAZOLE 40 MG TABLET PO SCH ×2 (09:28→18:24)
[2017-05-16] MEDS: GABAPENTIN 300 MG CAP PO SCH ×3 (09:28→18:24)
[2017-05-16] MEDS: NICOTINE 21MG/24HR PATCH TRANSDERM SCH ×2 (09:28)
[2017-05-16] MEDS: CLOPIDOGREL 75 MG TAB PO SCH (09:28)
[2017-05-16] MEDS: METOPROLOL TARTRATE 50 MG TAB PO SCH ×2 (09:28→21:15)
[2017-05-16] MEDS: CHOLECALCIFEROL 400 UNIT TAB PO SCH (09:29)
[2017-05-16] MEDS: metFORMIN 500 MG TAB PO SCH (09:29)
[2017-05-16] MEDS: tiZANidine 4 MG TAB PO SCH ×2 (09:29→17:09)
[2017-05-16] MEDS: NON-FORMULARY DRUG (Pentosan Polysulfate Sodium [Elmiron] 100 MG) PO SCH ×2 (09:31→17:01)
--- NOTE | 2017-05-16 09:55 | CONS ---
CONSULTATION ATTENDING PHYSICIAN: Dr. Henao Mr. Ryder is a 56-year-old male with a known history of coronary artery disease who presented to the emergency room with symptoms of chest discomfort. The discomfort started yesterday morning while at work and persisted throughout the day, was quite severe, came into the emergency room and subsequently admitted. He denies any associated dizziness or palpitation. He denies any change in his breathing pattern. He had no peripheral edema. He was given nitroglycerin, but he is not quite sure if it helped the pain. His cardiac history is remarkable for history of coronary artery disease, status post percutaneous revascularization done in 2001 to his mid RCA and mid circumflex and subsequently in 2003 of his distal circumflex and in 2004 to his mid LAD. He has a history of mild to moderate ischemic cardiomyopathy with moderate mitral regurgitation. He has been evaluated to undergo a back fusion in June and at that time as part of his evaluation, he recently underwent a myocardial perfusion imaging that revealed a fixed inferoapical inferolateral wall defect with ejection fraction 45%, and his echocardiogram revealed a mildly impaired left ventricular systolic function. He is not quite sure if this symptoms remind him of what he had at the time of his event. The patient has a history of mild chronic dyspnea on exertion and occasional peripheral edema. He has no change in those symptoms. His coronary risk factors are remarkable for diabetes, hypertension, hyperlipidemia, family history of premature coronary artery disease and unfortunately chronic tobacco use. MEDICATION: His medications at home included metformin 500 mg daily, Plavix 75 mg daily, aspirin, metoprolol tartrate 50 mg twice a day, Zestril 20 mg twice a day, gabapentin, Lipitor 40 mg daily, amlodipine 10 mg daily. Aldactone 12.5 mg daily a.m., , Prilosec 20 mg twice a day. Zanaflex. REVIEW OF SYSTEMS: RESPIRATORY SYSTEM: He has dyspnea on exertion. He has a history of chronic tobacco use and occasional cough. GI SYSTEM: He denies any recent GI bleeding. No nausea on a regular basis, although he felt mildly nauseated yesterday. SYSTEM: No dysuria, hematuria. NERVOUS SYSTEM: No stroke or seizure. MUSCULOSKELETAL: He has history of chronic back pain. PHYSICAL EXAMINATION: 56-year-old male, alert, oriented, in no apparent distress. Blood pressure running in the 90s with a heart rate in the 70s. HEAD: Normocephalic. EYES: Sclerae anicteric. NECK: Good upstroke. No bruit. LUNGS: With decreased air exchange. No wheezes. HEART: Rate rhythm S1, S2. No S3 with a holosystolic murmur in the apex radiating to the axilla. No diastolic murmur. ABDOMEN: Soft, nontender. Positive bowel sounds. No organomegaly. EXTREMITIES: No edema. Intact distal pulses. LAB DATA: Lab data revealed troponin less than 0.012 for 2 samples. BUN and creatinine 23 and 1.52, potassium 4.5, cholesterol is 133, LDL of 66. Hemoglobin 13.1, white blood cell of 8.9. EKG revealed a sinus mechanism with a normal axis and intervals with evidence of inferior wall myocardial infarction. Chest x-ray shows no acute infiltrate. IMPRESSION: 1. Symptoms of chest discomfort of unclear etiology. No clear evidence to suggest acute coronary syndrome. The patient had underwent a myocardial perfusion imaging recently that revealed a fixed defect. He has a known history of multivessel coronary angioplasty and stenting, most recently in 2004. 2. History of ischemic cardiomyopathy with no overt signs of heart failure. 3. History of hypertension. 4. Hyperlipidemia. 5. Diabetes mellitus. 6. Chronic tobacco use. 7. Renal failure, worse than before. 8. Chronic back pain. RECOMMENDATION: I will stop his amlodipine and cut down the dose of his lisinopril because of his low blood pressure. I will continue the IV heparin for another 24 hours and observe his symptoms. If he has persistent symptoms then he may require repeat coronary angiography in spite of the recent nuclear scan. In the meantime, we will continue rest his medical regimen and depending on his progress, further recommendation will be made. Thank you for this consult. We will follow with you. MMODL / IJN: [id number] /
[2017-05-16] MEDS ORDERED: HEPARIN SODIUM,PORCINE 5,000 UNIT/ML 1 ML VIAL IV PRN (10:31)
[2017-05-16] MEDS ORDERED: HEPARIN SODIUM,PORCINE/D5W PMX 25,000 UNIT in DEXTROSE/WATER 1 500ML.BAG IV SCH (10:45)
[2017-05-16 11:11] LABS: Creatine Kinase 235 U/L (55-170)
[2017-05-16 11:24] LABS: Creatine Kinase MB 2.4 ng/mL (0.0-2.4); Troponin I <0.012 ng/mL (0.000-0.034)
[2017-05-16 12:14] LABS: Glucose,Whole Blood 146 mg/dL (75-99)
[2017-05-16] MEDS ORDERED: MAG HYDROX/AL HYDROX/SIMETH 30 ML CUP PO PRN (16:20)
[2017-05-16 16:56] LABS: Glucose,Whole Blood 95 mg/dL (75-99)
[2017-05-16] MEDS ORDERED: ATORVASTATIN 40 MG TAB PO SCH (21:00)
[2017-05-16] MEDS: LISINOPRIL 10 MG TAB PO SCH (21:17)
[2017-05-16 21:18] LABS: Glucose,Whole Blood 143 mg/dL (75-99)
[2017-05-16 21:40] VITALS: RESP 18
--- NOTE | 2017-05-16 21:42 | P.HPIM ---
History of Present Illness H&P Date: 05/16/17 Chief Complaint: Chest pain Patient is a 56-year-old male known history of hypertension, hyperlipidemia, diabetes type 2, coronary artery disease status post stent placement with [place] in 2001 and also in 2003 came to the hospital and CHF with mildly reduced systolic function ejection fraction 40-40% and ischemic mild cardio myopathy with complaints of chest pain midsternal and epigastric region while he was at work at around 12 yesterday. 8 of 10 in severity. Patient was given aspirin and nitroglycerin by EMS as well as morphine. Patient is still having intermittent chest pain. Denied any fever or chills. Denied any recent illnesses. No nausea vomiting or abdominal pain. Patient otherwise denied any headache or dizziness. Patient has recent stress test about 2 weeks back for preoperative evaluation for orthopedic procedure showed inferolateral ischemia. Patient also had EGD done in July 2016. EKG showed sinus rhythm normal Chest x-ray showed no acute cardiorenal process. Troponin 3 negative. Review of Systems Constitutional: Patient denies any fever or chills . No generalized weakness or weight loss. Abdomen: Patient denied nausea vomiting and diarrhea and abdominal pain. Cardiovascular: Midsternal and epigastric chest pain with mild short of breath. No palpitation Respiratory: patient denied any cough is from production. No shortness of breath Neurologic: Patient denied any numbness or tingling headache. Musculoskeletal: Patient denies any complaints of joint swelling or deformity. Skin: Negative Psychiatric: Negative Endocrine: No heat or cold intolerance. No recent weight gain. Genitourinary: No dysuria or hematuria. All other 14 point ROS negative except the above Past Medical History Past Medical History: Coronary Artery Disease (CAD), Diabetes Mellitus, GERD/ Reflux, GI Bleed, Hyperlipidemia, Hypertension, Liver Disease, Myocardial Infarction ([place]), Osteoarthritis (OA) Additional Past Medical History / Comment(s): HX ELEV LFT YEARS AGO. HX Low Back injury. Tremors IN HANDS. INTERSTITIAL CYSTITIS. "GAS PAINS IN CHEST/ RIBCAGE, ULQ ABD, PROB IRRITATED BY NSAIDS, ASPIRIN, WHICH I QUIT"; HAD BLOOD IN STOOL FEW WEEKS AGO. Last Myocardial Infarction Date:: 2001 History of Any Multi-Drug Resistant Organisms: None Reported Past Surgical History: Back Surgery, Cholecystectomy, Heart Catheterization With Stent, Hernia Repair, Orthopedic Surgery Additional Past Surgical History / Comment(s): Cardiac Stent x 3 - 2 IN 2001, 1 IN 2003 EST. Right shoulder. BACK, spinal fusion. COLONOSCOPY 2009. ORIF RT LOWER LEG. Past Anesthesia/Blood Transfusion Reactions: No Reported Reaction Date of Last Stent Placement:: 2003 Past Psychological History: Anxiety Additional Psychological History / Comment(s): PATIENT DENIES Smoking Status: Heavy tobacco smoker Past Alcohol Use History: None Reported Additional Past Alcohol Use History / Comment(s): SMOKED ON/OFF SINCE AGE 11, 1 PPD. Past Drug Use History: None Reported - Past Family History Mother Family Medical History: Cancer Medications and Allergies Home Medications Medication Instructions Recorded Confirmed Type Atorvastatin [Lipitor] 40 mg PO HS 07/09/16 05/15/17 History Clopidogrel [Plavix] 75 mg PO DAILY 07/09/16 05/15/17 History Lisinopril [Zestril] 20 mg PO BID 07/09/16 05/15/17 History Metoprolol Tartrate [Lopressor] 50 mg PO BID 07/09/16 05/15/17 History Omeprazole [PriLOSEC] 20 mg PO BID 07/09/16 05/15/17 History Spironolactone [Aldactone] 12.5 mg PO DAILY 07/09/16 05/15/17 History metFORMIN HCL [Glucophage] 500 mg PO DAILY 07/09/16 05/15/17 History tiZANidine [Zanaflex] 4 mg PO TID 07/09/16 05/15/17 History Pentosan Polysulfate Sodium 100 mg PO TID 08/15/16 05/15/17 History [Elmiron] HYDROcodone/APAP 7.5-325MG [[place] 1 tab PO QID PRN 09/08/16 05/15/17 History 7.5-325] Cholecalciferol [Vitamin D3] 400 unit PO DAILY 12/18/16 05/15/17 History [place]-3/Dha/Epa/Fish Oil [Fish Oil 1 cap PO DAILY 12/18/16 05/15/17 History 500 mg Softgel] Albuterol Nebulized [Ventolin 2.5 mg INHALATION RT-Q6H PRN 05/15/17 05/15/17 History Nebulized] Aspirin 81 mg PO DAILY 05/15/17 05/15/17 History Gabapentin 600 mg PO QID 05/15/17 05/15/17 History amLODIPine [Norvasc] 10 mg PO DAILY 05/15/17 05/15/17 History Allergies Allergy/AdvReac Type Severity Reaction Status Date / Time Bleach (Sodium Hypochlorite) Allergy Rash/Hives Verified 05/15/17 21:36 Penicillins Allergy Rash/Hives Verified 05/15/17 21:36 Physical Exam Vitals: Vital Signs Temp Pulse Pulse Resp BP BP BP 05/16/17 11:58 60 18 05/16/17 11:48 98.0 F 60 18 107/69 05/16/17 08:00 97.4 F L 73 18 99/59 05/16/17 07:29 68 05/16/17 07:20 68 05/16/17 04:00 97.8 F 67 18 98/54 05/15/17 23:00 18 05/15/17 22:40 97.6 F 58 L 18 98/61 05/15/17 22:19 97.6 F 60 18 97/54 05/15/17 21:43 65 18 100/59 05/15/17 20:43 98.1 F 63 18 134/82 Pulse Ox 05/16/17 11:58 05/16/17 11:48 96 05/16/17 08:00 97 05/16/17 07:29 05/16/17 07:20 05/16/17 04:00 97 05/15/17 23:00 05/15/17 22:40 97 05/15/17 22:19 96 05/15/17 21:43 98 05/15/17 20:43 99 Intake and Output 05/16/17 05/16/17 05/16/17 06:59 14:59 22:59 Intake Total 172 240 Balance 172 240 Intake: Intake, IV Titration 172 Amount Heparin Sodium,Porcine/ 172 D5w Pmx 25,000 unit In Dextrose/Water 1 500ml. bag @ 12 UNITS/KG/HR 23.4 mls/hr IV .[id number] STA Rx#:[id number] Oral 240 Other: Voiding Method Toilet # Voids 1 3 Weight 97.522 kg PHYSICAL EXAMINATION: Patient is lying in the bed comfortably, no acute distress, awake alert and oriented.. HEENT: Normocephalic. Neck is supple. Pupils reactive. Nostrils clear. Oral cavity is moist. Ears reveal no drainage. Neck reveals no JVD, carotid bruits, or thyromegaly. CHEST EXAMINATION: Trachea is central. Symmetrical expansion. Lung munoz clear to auscultation and percussion. CARDIAC: Normal S1, S2 with no gallops. No murmurs ABDOMEN: Soft. Bowel sounds normal. No organomegaly. No abdominal bruits. Extremities: reveal no edema. No clubbing or cyanosis Neurologically awake, alert, oriented x3 with well-coordinated movements. No focal deficits noted Skin: No rash or skin lesions. Psychiatric: Operative. Nonsuicidal Musculoskeletal: No joint swelling or deformity. Normal range of motion. Results CBC & Chem 7: 05/15/17 21:00 05/15/17 21:00 Labs: Abnormal Lab Results - Last 24 Hours (Table) 05/15/17 05/15/17 05/15/17 Range/Units 21:00 21:00 21:00 RBC 3.96 L (4.30-5.90) m/uL APTT (22.0-30.0) sec Chloride 109 H (98-107) mmol/L BUN 23 H (9-20) mg/dL Creatinine 1.52 H (0.66-1.25) mg/dL Glucose 139 H (74-99) mg/dL POC Glucose (mg/dL) (75-99) mg/dL Total Creatine Kinase 315 H (55-170) U/L CK-MB (CK-2) 3.1 H* (0.0-2.4) ng/mL Triglycerides (<150) mg/dL HDL Cholesterol (40-60) mg/dL 05/16/17 05/16/17 05/16/17 Range/Units 03:22 03:22 03:22 RBC (4.30-5.90) m/uL APTT 40.4 H (22.0-30.0) sec Chloride (98-107) mmol/L BUN (9-20) mg/dL Creatinine (0.66-1.25) mg/dL Glucose (74-99) mg/dL POC Glucose (mg/dL) (75-99) mg/dL Total Creatine Kinase 203 H (55-170) U/L CK-MB (CK-2) 2.5 H* (0.0-2.4) ng/mL Triglycerides 186 H (<150) mg/dL HDL Cholesterol 30 L (40-60) mg/dL 05/16/17 05/16/17 05/16/17 Range/Units 07:42 10:06 12:05 RBC (4.30-5.90) m/uL APTT (22.0-30.0) sec Chloride (98-107) mmol/L BUN (9-20) mg/dL Creatinine (0.66-1.25) mg/dL Glucose (74-99) mg/dL POC Glucose (mg/dL) 128 H 146 H (75-99) mg/dL Total Creatine Kinase 235 H (55-170) U/L CK-MB (CK-2) (0.0-2.4) ng/mL Triglycerides (<150) mg/dL HDL Cholesterol (40-60) mg/dL Thrombosis Risk Factor Assmnt - Choose All That Apply Each Factor Represents 1 point: Age 41-60 years Thrombosis Risk Factor Assessment Total Risk Factor Score: 1 Thrombosis Risk Factor Assessment Level: Low Risk Assessment and Plan Assessment: #1 atypical chest pain in a patient with known history of multivessel coronary artery disease. #2 coronary artery disease with history of stent placement 3 in 2001 and 2003 #3 ischemic mild cardio myopathy ejection fraction 45-40% #4 diabetes type 2 [id number] #3 hypertension #6 hyperlipidemia #7 family history of coronary artery disease #8 acute kidney injury with possible underlying security stage III #9 history of GERD and gastritis status post EGD in July 2016 Plan: Patient will be continued on telemetry monitoring. Serial EKGs and troponin negative. Recent stress test about 2 weeks back showed inferolateral ischemia possibly fixed defect. Will continue the current management and cardiology records cardiac Catheterization likely tomorrow. Continue with aspirin and statins metoprolol and lisinopril. We will continue to follow closely. Further recommendations based on the clinical course. Time with Patient: Greater than 30
[2017-05-17] MEDS: NON-FORMULARY DRUG (Pentosan Polysulfate Sodium [Elmiron] 100 MG) PO SCH ×2 (05:36→09:33)
[2017-05-17] MEDS: HYDROcodone/APAP 7.5-325MG 1 EACH TAB PO PRN ×2 (05:38→11:09)
[2017-05-17 06:46] LABS: Glucose,Whole Blood 125 mg/dL (75-99)
[2017-05-17 07:47] LABS: Basophils % (A) 0 %; CH 33.8; CHCM 33.6; Eosinophils % (A) 1 %; HCT 39.9 % (39.0-53.0); HDW 2.35; HGB 12.8 gm/dL (13.0-17.5); Luc % (Auto) 2; Lymphocytes # (A) 1.3 k/uL (1.0-4.8); Lymphocytes % (A) 31 %; MCH 32.3 pg (25.0-35.0); MCV 100.9 fL (80.0-100.0); Mean Platelet Volume 7.7; Monocytes # (A) 0.3 k/uL (0-1.0); Monocytes % (A) 6 %; Neutrophils # (A) 2.5 k/uL (1.3-7.7); Neutrophils % (A) 60 %; RBC 3.95 m/uL (4.30-5.90); RDW 12.2 % (11.5-15.5); WBC 4.2 k/uL (3.8-10.6); WBC (Perox) 4.26
[2017-05-17 08:03] VITALS: BP 121/77; PULSE 61; TEMP 98.5
[2017-05-17 08:16] LABS: Anion Gap 8 mmol/L; Blood Urea Nitrogen 16 mg/dL (9-20); Calcium 9.3 mg/dL (8.4-10.2); Carbon Dioxide 21 mmol/L (22-30); Chloride 114 mmol/L (98-107); Glucose 117 mg/dL (74-99); Non-African American GFR(MDRD) >60 (>60 ml/min/1.73 sqM); Potassium 4.9 mmol/L (3.5-5.1); Sodium 143 mmol/L (137-145)
[2017-05-17] MEDS: INSULIN LISPRO (humaLOG) 300 UNIT/3 ML VIAL SQ SCH (09:29)
[2017-05-17] MEDS: metFORMIN 500 MG TAB PO SCH (09:33)
[2017-05-17] MEDS: NICOTINE 21MG/24HR PATCH TRANSDERM SCH (09:34)
[2017-05-17] MEDS: CLOPIDOGREL 75 MG TAB PO SCH (09:34)
[2017-05-17] MEDS: PANTOPRAZOLE 40 MG TABLET PO SCH (09:34)
[2017-05-17] MEDS: GABAPENTIN 300 MG CAP PO SCH ×2 (09:34)
[2017-05-17] MEDS: METOPROLOL TARTRATE 50 MG TAB PO SCH (09:34)
[2017-05-17] MEDS: tiZANidine 4 MG TAB PO SCH ×2 (09:34)
[2017-05-17] MEDS: LISINOPRIL 10 MG TAB PO SCH (09:34)
--- NOTE | 2017-05-17 10:32 | PN ---
PROGRESS NOTE Mr. Ryder is a 56-year-old male with known history of coronary artery disease, history of ischemic cardiomyopathy, who presented with symptoms of chest discomfort. He is feeling quite well this morning. Ambulating without difficulty. Denying any symptoms of chest pain. No dizziness. No palpitation. No nausea. Continued on aspirin once a day, Lipitor 40 mg daily, Plavix 75 mg daily, lisinopril 10 mg twice a day, metformin 500 mg daily, metoprolol tartrate 5 mg twice a day, and IV heparin. PHYSICAL EXAMINATION: Blood pressure 121/70 with a heart rate in the 60s. LUNGS: Clear. HEART: Regular rate and rhythm, S1, S2. No S3 with systolic murmur at the base. No diastolic murmur. ABDOMEN: Soft, nontender. EXTREMITIES: No edema. LAB DATA: Revealed BUN and creatinine 16 and 0.93, which is much improved compared with yesterday. IMPRESSION: 1. Symptoms of chest discomfort with no clear evidence of acute coronary artery syndrome with recent negative myocardial perfusion imaging. 2. History of ischemic cardiomyopathy. 3. History of mitral regurgitation. 4. Chronic tobacco use. 5. Hypertension. 6. Hyperlipidemia. 7. Renal failure results. RECOMMENDATION: From the cardiac standpoint, I will stop the heparin, increase his activity. If he remains stable, I would expect he should be able to be discharged home today and followed as an outpatient. MMSTEVIE / CARLOS: [id number] /
[2017-05-17] MEDS: CHOLECALCIFEROL 400 UNIT TAB PO SCH (11:10)
[2017-05-17 12:15] LABS: Glucose,Whole Blood 127 mg/dL (75-99)
--- NOTE | 2017-05-17 22:20 | P.DS ---
Providers Date of admission: 05/15/17 22:07 Expected date of discharge: 05/17/17 Attending physician: Mariza Mixon Consults: 05/15/17 22:07 Consult Physician Urgent Consulting Provider: Renaldo Guerrero Consult Reason/Comments: chest pain, angina Do you want consulting provider notified?: Yes Primary care physician: Nighat Henao Hospital Course: Discharge diagnosis #1 atypical chest pain in a patient with known history of multivessel coronary artery disease. Ruled out ACS #2 coronary artery disease with history of stent placement 3 in 2001 and 2003 #3 ischemic mild cardio myopathy ejection fraction 45-40% #4 diabetes type 2 [id number] #3 hypertension #6 hyperlipidemia #7 family history of coronary artery disease #8 acute kidney injury with possible underlying security stage III #9 history of GERD and gastritis status post EGD in July 2016 Hospital course Patient is a 56-year-old male known history of hypertension, hyperlipidemia, diabetes type 2, coronary artery disease status post stent placement with [place] in 2001 and also in 2003 came to the hospital and CHF with mildly reduced systolic function ejection fraction 40-40% and ischemic mild cardio myopathy with complaints of chest pain midsternal and epigastric region while he was at work at around 12 yesterday. 8 of 10 in severity. Patient was given aspirin and nitroglycerin by EMS as well as morphine. Patient is still having intermittent chest pain. Denied any fever or chills. Denied any recent illnesses. No nausea vomiting or abdominal pain. Patient otherwise denied any headache or dizziness. Patient has recent stress test about 2 weeks back for preoperative evaluation for orthopedic procedure showed inferolateral ischemia. Patient also had EGD done in July 2016. EKG showed sinus rhythm normal Chest x-ray showed no acute cardiorenal process. Troponin 3 negative. : Patient was continued on telemetry monitoring. Serial EKGs and troponin negative. Recent stress test about 2 weeks back showed inferolateral ischemia possibly fixed defect. Continue with aspirin and statins metoprolol and lisinopril. Patient was also started on meloxicam continued on Protonix. Telemetry findings are negative overnight. Patient's chest pain completely resolved now. Patient is cleared from cardiac standpoint to be discharged home and follow-up as an outpatient. Blood pressure medications were adjusted. Discharge physical examination was done. Patient Condition at Discharge: Stable Plan - Discharge Summary New Discharge Prescriptions: New Lisinopril [Zestril] 10 mg PO BID #60 tab Nitroglycerin Sl Tabs [Nitrostat] 0.4 mg SUBLINGUAL Q5M PRN #50 tab PRN Reason: Chest Pain Continue tiZANidine [Zanaflex] 4 mg PO TID Omeprazole [PriLOSEC] 20 mg PO BID Clopidogrel [Plavix] 75 mg PO DAILY Metoprolol Tartrate [Lopressor] 50 mg PO BID metFORMIN HCL [Glucophage] 500 mg PO DAILY Atorvastatin [Lipitor] 40 mg PO HS Pentosan Polysulfate Sodium [Elmiron] 100 mg PO TID HYDROcodone/APAP 7.5-325MG [[place] 7.5-325] 1 tab PO QID PRN PRN Reason: Pain Cholecalciferol [Vitamin D3] 400 unit PO DAILY [place]-3/Dha/Epa/Fish Oil [Fish Oil 500 mg Softgel] 1 cap PO DAILY Albuterol Nebulized [Ventolin Nebulized] 2.5 mg INHALATION RT-Q6H PRN PRN Reason: Shortness Of Breath Aspirin 81 mg PO DAILY Gabapentin 600 mg PO QID Discontinued Spironolactone [Aldactone] 12.5 mg PO DAILY Lisinopril [Zestril] 20 mg PO BID amLODIPine [Norvasc] 10 mg PO DAILY Discharge Medication List Atorvastatin [Lipitor] 40 mg PO HS 07/09/16 [History] Clopidogrel [Plavix] 75 mg PO DAILY 07/09/16 [History] Metoprolol Tartrate [Lopressor] 50 mg PO BID 07/09/16 [History] Omeprazole [PriLOSEC] 20 mg PO BID 07/09/16 [History] metFORMIN HCL [Glucophage] 500 mg PO DAILY 07/09/16 [History] tiZANidine [Zanaflex] 4 mg PO TID 07/09/16 [History] Pentosan Polysulfate Sodium [Elmiron] 100 mg PO TID 08/15/16 [History] HYDROcodone/APAP 7.5-325MG [[place] 7.5-325] 1 tab PO QID PRN 09/08/16 [History] Cholecalciferol [Vitamin D3] 400 unit PO DAILY 12/18/16 [History] [place]-3/Dha/Epa/Fish Oil [Fish Oil 500 mg Softgel] 1 cap PO DAILY 12/18/16 [ History] Albuterol Nebulized [Ventolin Nebulized] 2.5 mg INHALATION RT-Q6H PRN 05/15/17 [ History] Aspirin 81 mg PO DAILY 05/15/17 [History] Gabapentin 600 mg PO QID 05/15/17 [History] Lisinopril [Zestril] 10 mg PO BID #60 tab 05/17/17 [Rx] Nitroglycerin Sl Tabs [Nitrostat] 0.4 mg SUBLINGUAL Q5M PRN #50 tab 05/17/17 [Rx ] Follow up Appointment(s)/Referral(s): Renaldo Guerrero MD [STAFF PHYSICIAN] - 1 Week (Patient has a follow up appointment on May 26 at 10:45am) Nighat Henao MD [Primary Care Provider] - 1-2 days Discharge Disposition: HOME SELF-CARE
== END 2017-05-17 15:02 | disposition home or self-care (01) ==
LOC: EC 20:40 → 3OBS 22:07
PROVIDERS: ADMIT Internal Medicine; ATTEND Internal Medicine
DX: R07.89 Other chest pain (principal); I25.10 Atherosclerotic heart disease of native coronary artery without angina pectoris; N17.9 Acute kidney failure, unspecified; I11.9 Hypertensive heart disease without heart failure; I25.5 Ischemic cardiomyopathy; I34.0 Nonrheumatic mitral (valve) insufficiency; F17.200 Nicotine dependence, unspecified, uncomplicated; N30.10 Interstitial cystitis (chronic) without hematuria; M19.90 Unspecified osteoarthritis, unspecified site; K21.9 Gastro-esophageal reflux disease without esophagitis; R25.1 Tremor, unspecified; E78.5 Hyperlipidemia, unspecified; E11.9 Type 2 diabetes mellitus without complications; G89.29 Other chronic pain; M54.9 Dorsalgia, unspecified; Z95.5 Presence of coronary angioplasty implant and graft; Z79.02 Long term (current) use of antithrombotics/antiplatelets; Z79.899 Other long term (current) drug therapy; Z79.84 Long term (current) use of oral hypoglycemic drugs; Z79.82 Long term (current) use of aspirin; Z88.0 Allergy status to penicillin; Z91.048 Other nonmedicinal substance allergy status; I25.2 Old myocardial infarction; Z87.19 Personal history of other diseases of the digestive system; Z82.49 Family history of ischemic heart disease and other diseases of the circulatory system
CPT/HCPCS: 99291 ×2; 96365 ×2; 96376 ×3; 96366 ×3; 36415; 94640; 94760; 93005; 85379; 83880; 80061; 80053; 80048; 82150; 82550 ×2; 82553 ×2; 83690; 83735; 84484 ×2; 85025 ×2; 85610; 85730 ×3; 71020; G0378 ×3; S4990 ×2; J1644 ×4

== ENCOUNTER → 2017-09-16 | Outpatient (CLI) | payer OTHER ==
--- NOTE | 2017-09-17 10:52 | MR ---
EXAMINATION TYPE: MR brain wo/w con DATE OF EXAM: 09/16/2017 COMPARISON: NONE HISTORY: Essential tremors, Gadavist 10ml TECHNIQUE: Multiplanar, multisequence images of the brain and brainstem is performed without and with IV contras t, utilizing 10 mL intravenous Gadavist . FINDINGS: Diffusion weighted images demonstrate no evidence of a recent infarct or other diffusion ab normality. There is no extra-axial fluid collection. Scattered mild burden subcentimeter foci of non specific white matter change demonstrated as T2/flair hyperintensities are seen within the subcortica l and periventricular white matter. There is no evidence of abnormal enhancement within any of these white matter foci. No abnormal postcontrast enhancement is seen throughout the brain. The ventricular system and cisternal spaces are normal in size and appearance for the patient's age. The brain volu me is age appropriate. Midline structures demonstrate normal morphology. The craniocervical junction appears within normal limits. The dural venous sinuses appear patent. The visualized sinuses are clear and the globes are intact. There is partial opacification of the right mastoid air cells and to a lesser degree on the l eft. Minimal mucosal thickening is seen within the ethmoid sinuses. Remaining visualized paranasal si nuses are well aerated. Globes are intact. Major intracranial flow voids are maintained. IMPRESSION: 1. No acute intracranial hemorrhage, midline shift or mass effect. No abnormal intracranial enhanceme nt. 2. Mild burden nonspecific white matter change within the subcortical and periventricular white matte r, most commonly related to chronic microangiopathy. 3. Partial opacification of the right mastoid air cells and to a lesser degree on the left. Correlate with point tenderness to exclude mastoiditis. 4. Age-appropriate mild cerebral volume loss. 5. Minimal mucosal thickening within the ethmoid sinuses.
== END ==
LOC: RADMRIMAIN 09:08
PROVIDERS: ATTEND Psychiatry & Neurology Neurology
DX: I73.9 Peripheral vascular disease, unspecified (principal); R90.89 Other abnormal findings on diagnostic imaging of central nervous system; H74.8X1 Other specified disorders of right middle ear and mastoid; G31.1 Senile degeneration of brain, not elsewhere classified
CPT/HCPCS: 70553

== ENCOUNTER → 2017-11-24 | Outpatient (CLI) | payer OTHER ==
--- NOTE | 2017-11-24 22:11 | MR ---
EXAMINATION TYPE: MR shoulder RT wo con DATE OF EXAM: 11/24/2017 COMPARISON: NONE HISTORY: 57-year-old male with right shoulder pain x 1 year, hx surgery 2000 TECHNIQUE: Multiplanar, multisequence imaging of the right shoulder is performed without contrast. FINDINGS: The long head biceps tendon shows abnormal signal at the junction of the intracapsular and extracapsu lar portions. The extracapsular portion remains appropriately situated along the bicipital groove wit h mild tenosynovial fluid. The subscapularis tendon shows heterogeneous signal and possible shallow articular sided tearing. The majority of the tendon remains intact. Mild degenerative joint space narrowing and marginal spurring at the acromioclavicular joint. This co ntacts the underlying myotendinous junction of the supraspinatus. No significant fluid within the subacromial/subdeltoid bursa. No atrophy of the rotator cuff musculat ure. There is mild heterogeneous signal within the supraspinatus tendon and more extensive intrasubstance signal within the infraspinatus tendon and focal intrasubstance change/tear measuring 1.2 cm long and 8 mm AP, coronal image 14 and sagittal image 21. No high-grade partial or full-thickness tear is identified. The suture anchor is present along the lateral aspect of the greater tuberosity from prior cuff repai r. Evaluation of the glenohumeral joint shows some degenerative signal in the posterior aspect of the simmons perior labrum. No para labral cyst. No significant joint effusion. Overall articular cartilage is franchesca ntained. No Hill-Sachs deformity or os acromiale. No suspicious bone marrow replacement. IMPRESSION: 1. Diffuse rotator cuff tendinosis. There may be some shallow articular sided tearing of the subscapu hermelinda tendon but the majority of the tendon remains intact. 2. In addition, there is a prominent intrasubstance tear of the infraspinatus tendon measuring 1.2 x 0.8 cm. 3. Prior supraspinatus tendon repair without evidence for high-grade partial or full thickness re-tea r. 4. No muscle atrophy. 5. Suspect a partial tear of the long head biceps tendon at the junction of the intracapsular and ext racapsular portions. 6. Mild AC joint OA with spurring mildly impinging onto the underlying cuff.
== END | disposition home or self-care (01) ==
LOC: RADMRIMAIN 14:36
PROVIDERS: ATTEND Orthopaedic Surgery
DX: S46.811A Strain of other muscles, fascia and tendons at shoulder and upper arm level, right arm, initial encounter (principal); M19.011 Primary osteoarthritis, right shoulder; M75.101 Unspecified rotator cuff tear or rupture of right shoulder, not specified as traumatic

== ENCOUNTER 2018-07-18 06:01 | Day surgery (SDC) | payer OTHER ==
[2018-07-16 08:26] VITALS: BMI 33.0
--- NOTE | 2018-07-17 14:03 | HP ---
HISTORY AND PHYSICAL DATE OF SERVICE: 07/18/2018 Ignacio Mejia is a 58-year-old patient seen with progressive right shoulder pain. Treatment options were discussed. He elected to proceed with arthroscopy. Consent was obtained, medical and cardiac clearances were obtained. PAST MEDICAL HISTORY: Coronary artery disease, hypertension, hyperlipidemia, gastroesophageal reflux disease, [id number] diabetes. PAST SURGICAL HISTORY: Herniorrhaphy, shoulder arthroscopy, bladder surgery, spine surgery. MEDICATIONS: Amlodipine, atorvastatin, Inderal, lisinopril, Lopressor, metformin, metoprolol, Plavix, Prilosec. ALLERGIES: PENICILLIN. SOCIAL HISTORY: Patient denies tobacco use. PHYSICAL EVALUATION RIGHT SHOULDER: Flexion 90 degrees, abduction 80 degrees, external rotation is 40 degrees with weakness. There is tenderness along the anterior lateral acromion rotator cuff insertion site. Impingement sign is positive at 80 degrees, distal neurovascular exam is intact. RIGHT SHOULDER RADIOGRAPHS: Revealed a type 2 anterior acromion, evidence for acromioclavicular joint osteoarthritis. There is evidence for previous metallic anchor within the humeral head. An MRI revealed rotator cuff tear, biceps tendon tear. IMPRESSION: 1. Right shoulder impingement with rotator cuff tear. 2. Right shoulder acromioclavicular joint osteoarthritis. 3. Hypertension. 4. Hyperlipidemia. 5. Iah-yuacclm-xtndzzxhj diabetes. PLAN: Right shoulder arthroscopy with subacromial decompression, probable arthroscopic rotator cuff repair, possible Sterling procedure and debridement. MMODL / IJN: [id number] /
[~2018-07-18 06:01] MED LIST changes: +DEXAMETHASONE SOD PHOSPHATE 10 MG/ML 1 ML VIAL IV ONE; +HYDROmorphone 0.5 MG/0.5 ML SYRINGE IVP PRN; +MIDAZOLAM (PF) 2 MG/2 ML VIAL IV PRN; +ONDANSETRON 4 MG/2 ML VIAL IVP ONE; +SCOPOLAMINE 1.5MG/72HR PATCH TRANSDERM ONE; +ceFAZolin IN SWFI 2 GM/20 ML SYRINGE IVP ONE
[2018-07-18 06:51] LABS: Glucose,Whole Blood 120 mg/dL (75-99)
[2018-07-18] MEDS ORDERED: fentaNYL (PF) 50 MCG/ML 2 ML AMP ONE (07:23)
[2018-07-18] MEDS ORDERED: SUCCINYLCHOLINE CHLORIDE 100 MG/5 ML SYR IV ONE (07:23)
[2018-07-18] MEDS ORDERED: MIDAZOLAM 2 MG/2 ML VIAL ONE (07:23)
[2018-07-18] MEDS ORDERED: LIDOCAINE 1% INJ 10MG/ML (20 ML MDV) ONE (07:23)
[2018-07-18] MEDS ORDERED: PHENYLEPHRINE-0.9% NACL SYG 1 MG/10 ML SYRINGE ONE (07:23)
[2018-07-18] MEDS ORDERED: ePHEDrine SULFATE/0.9% NACL/PF 50 MG/5 ML SYRINGE IV ONE (07:23)
[2018-07-18] MEDS ORDERED: PROPOFOL 10 MG/ML 20 ML VIAL IV ONE (07:23)
[2018-07-18] MEDS ORDERED: ROPIVACAINE 5 MG/ML 30 ML VIAL ONE (07:23)
[2018-07-18] MEDS ORDERED: BUPIVACAIN-EPI 0.25%-1:200,000 30 ML VIAL INTRAARTIC ONE (08:13)
[2018-07-18] MEDS ORDERED: LACTATED RINGERS 1,000 ML IV ONE (09:10)
--- NOTE | 2018-07-18 09:16 | P.OP ---
Date of Procedure: 07/18/18 Preoperative Diagnosis: Right shoulder impingement Postoperative Diagnosis: 1. Right shoulder rotator cuff tear 2. Right shoulder impingement 3. Right shoulder acromioclavicular joint osteoarthritis 4. Right shoulder partial long head biceps tendon tear 5. Right shoulder superficial posterior labral tear Procedure(s) Performed: 1. Right shoulder arthroscopic rotator cuff repair 2. Right shoulder arthroscopic subacromial decompression 3. Right shoulder arthroscopic Sterling procedure 4. Right shoulder arthroscopic biceps tenotomy 5. Right shoulder arthroscopic debridement labral tear Implants: 15.5 Arthrex swivel lock Anesthesia: GETA, regional (Interscalene block) Surgeon: Roni Marvin [employer] Accountant #1: Braxton Walker Estimated Blood Loss (ml): 7 Pathology: none sent Condition: stable Disposition: PACU Indications for Procedure: 58-year-old patient seen with progressive right shoulder pain. After having treatment options discussed, he elected to proceed with arthroscopy. Operative Findings: See description of procedure Description of Procedure: Patient underwent an interscalene block by department of anesthesia. The patient was then taken to the operative suite. The patient underwent a general anesthetic by the department of anesthesia. The patient was placed into a lateral position and secured. There was appropriate padding of the bony prominence. Right shoulder was then prepped and draped in normal sterile orthopedic fashion. We placed the extremity in 10 pounds of longitudinal traction. A posterior incision was now made for a posterior working portal site. The trocar and cannula were inserted into the glenohumeral joint. Arthroscopy was initiated. Spinal needle was now inserted anteriorly, to ascertain the anterior working portal site. An incision was now made in that area, a trocar was inserted followed by a probe. There was superficial tearing of the posterior labrum. There were grade 1 chondromalacia changes of the glenoid with no osteochondral tears present. There was some partial tearing hyperemia long head biceps tendon. The remaining labrum was stable. I debrided the posterior superficial labral tear getting down to stable labral tissue. I performed an arthroscopic biceps tenotomy. The residual labrum was probed and found to be stable. Instruments now removed from glenohumeral joint. Utilizing the posterior working portal site, the trocar and cannula were inserted into the subacromial space. Arthroscopy initiated. I made an incision 2 fingerbreadths lateral to the acromion. I introduced my trocar followed by my [employer]Care ablator. I now began ablating thick subacromial bursal tissue, which exposed the undersurface of the anterior acromion. There was diminished subacromial space. There was a very prominent anterior acromion. A motorized bur was introduced and a subacromial decompression was performed. I also excised some osteophytes off the inferior aspect of the distal clavicle. The AC joint was visualized and noted to be fairly arthritic. The motorized bur was introduced in the anterior portal site and a Sterling procedure was performed without difficulty, decompressing the AC joint nicely. I turned my attention to the rotator cuff. I saw evidence of the previous repair with some residual suture. I debrided that suture out. There was a small tear just anterior to the area of suture. I debrided the margins of tendon getting down to stable tendon tissue. The defect measured 11.5 cm and it was freely mobile over the footprint. I abraded the footprint with a motorized bur. While nickolas walker held the arm in appropriate position I passed 2 everted mattress sutures through good bites of rotator cuff tendon tissue. I then punched lateral hole in our abraded footprint area for insertion of anchor. I now passed the sutures through a 5.5 Arthrex swivel lock anchor. I introduced the anchor into the pre-punch hole. While held anchor position Eddie WHITTINGTON tension the sutures and introduced anchor into the bone getting good fixation. Residual suture limbs were clipped. We had good compression of the tendon along the entire footprint. I injected 1 mL renue intra-articular. Instruments now removed from the portal sites. All portal sites were approximated with nylon suture. Sterile dressings were applied followed by a shoulder sling. Braxton WHITTINGTON assisted in this complex case. The patient was awakened, transferred to a bed, and taken to recovery in stable condition.
[2018-07-18 09:40] VITALS: TEMP 97
[2018-07-18 09:59] LABS: Glucose,Whole Blood 139 mg/dL (75-99)
[2018-07-18 10:02] VITALS: RESP 16
[2018-07-18 10:31] VITALS: BP 134/78; PULSE 65
--- NOTE | 2018-07-18 14:16 | P.ONQ ---
Anesthesiology Proc Note - PNB - Peripheral Nerve Block Performed Right Interscalene Single Time Out Performed: Yes Procedure Start Time: 07:02 Procedure Stop Time: 07:05 Indication: Acute Post-Operative Pain, Requested by physician Sedation Type: Sedate with meaningful contact maintained Preparation: Sterile Dressing Position: Supine Needle Size: 50mm (2") Needle Gauge: 21 Technique: Ultrasound Injectate: 0.5% Ropivacaine (see comment for volume) (ropi .5% 30cc) Blood Aspirated: No Pain Paresthesia on Injection Noted: No Resistance on Injection: Normal Events: Uneventful and Well Tolerated
== END 2018-07-18 11:16 | disposition home or self-care (01) ==
LOC: OR 06:01
PROVIDERS: ATTEND Orthopaedic Surgery
DX: M75.101 Unspecified rotator cuff tear or rupture of right shoulder, not specified as traumatic (principal); M75.41 Impingement syndrome of right shoulder; M19.011 Primary osteoarthritis, right shoulder; S46.111A Strain of muscle, fascia and tendon of long head of biceps, right arm, initial encounter; S43.431A Superior glenoid labrum lesion of right shoulder, initial encounter; X58.XXXA Exposure to other specified factors, initial encounter; M94.211 Chondromalacia, right shoulder; M25.711 Osteophyte, right shoulder; I10 Essential (primary) hypertension; E78.5 Hyperlipidemia, unspecified; K21.9 Gastro-esophageal reflux disease without esophagitis; E11.9 Type 2 diabetes mellitus without complications; Z79.84 Long term (current) use of oral hypoglycemic drugs; Z79.02 Long term (current) use of antithrombotics/antiplatelets; Z79.899 Other long term (current) drug therapy; Z88.0 Allergy status to penicillin
CPT/HCPCS: 64415; 29826; 29827; 29824; C1713 ×2; C1765; J2250 ×2; J1100; J2405; J2001; J3010; J2795; J2370; J0330; J2704; J0690

== ENCOUNTER → 2020-01-29 | Outpatient (CLI) | payer MEDICARE ==
--- NOTE | 2020-01-29 15:33 | XR ---
EXAMINATION TYPE: XR elbow complete RT DATE OF EXAM: 01/29/2020 CLINICAL HISTORY: Pain with difficulty extending. TECHNIQUE: Frontal, lateral and oblique images of the right elbow are obtained. COMPARISON: Available x-ray July 09, 2016 FINDINGS: There are persistent abnormal fat pad signs. No linear lucency to suggest acute fracture. Persistent moderate spurring lateral epicondyle distal humerus. IMPRESSION: As above. Suspect underlying joint effusion.
== END | disposition home or self-care (01) ==
LOC: RADXRYALE 15:08
PROVIDERS: ATTEND Internal Medicine
DX: M25.521 Pain in right elbow (principal); R93.7 Abnormal findings on diagnostic imaging of other parts of musculoskeletal system

== ENCOUNTER → 2020-06-22 | Outpatient (CLI) | payer MEDICARE ==
[2020-06-22 15:52] LABS: African American GFR (CKD) 49.3 (60.0-200.0); Albumin 4.8 g/dL (3.80-4.90); Albumin/Globulin Ratio 2.29 (1.60-3.17); Anion Gap 8.6 mmol/L (4.00-12.00); BUN/Creat Ratio 11.76 Ratio (12.00-20.00); Calcium 9.6 mg/dL (8.7-10.3); Carbon Dioxide 27.4 mmol/L (21.6-31.8); Chol/HDL Ratio 3.53; Globulin 2.1 g/dL (1.6-3.3); LDL Cholesterol,Calculated 87.4 mg/dL (0.0-131.0); Non-African American GFR(CKD) 42.6 (60.0-200.0); Potassium 5.3 mmol/L (3.5-5.5); Total Bilirubin 0.5 mg/dL (0.2-1.2); Total Protein 6.9 g/dL (6.2-8.2); VLDL Calculation 26.6 mg/dL (5.00-40.00)
== END | disposition home or self-care (01) ==
LOC: LABWHC1 09:08
PROVIDERS: ATTEND Internal Medicine Interventional Cardiology
DX: E78.2 Mixed hyperlipidemia (principal)
CPT/HCPCS: 36415; 80053; 80061

== ENCOUNTER → 2020-12-28 | Outpatient (CLI) | payer MEDICARE ==
[2020-12-28 15:10] LABS: African American GFR (CKD) 57.4 (60.0-200.0); Albumin 4.7 g/dL (3.80-4.90); Albumin/Globulin Ratio 1.88 (1.60-3.17); Anion Gap 8.6 mmol/L (4.00-12.00); Calcium 9.1 mg/dL (8.7-10.3); Carbon Dioxide 27.4 mmol/L (21.6-31.8); Chol/HDL Ratio 5.15; Globulin 2.5 g/dL (1.6-3.3); LDL Cholesterol,Calculated 77.8 mg/dL (0.0-131.0); Non-African American GFR(CKD) 49.5 (60.0-200.0); Potassium 4.3 mmol/L (3.5-5.5); Total Bilirubin 0.5 mg/dL (0.3-1.2); Total Protein 7.2 g/dL (6.2-8.2); VLDL Calculation 34.2 mg/dL (5.00-40.00)
== END | disposition home or self-care (01) ==
LOC: LABWHC1 09:39
PROVIDERS: ATTEND Nurse Practitioner Adult Health
DX: I10 Essential (primary) hypertension (principal); E78.2 Mixed hyperlipidemia
CPT/HCPCS: 36415; 80053; 80061

== ENCOUNTER 2021-01-13 | Emergency (ER) | payer MEDICARE | END 2021-01-13 13:55 | disposition home or self-care (01) | CPT/HCPCS: 73564; 99283; 96372; J2270 ==

== ENCOUNTER → 2021-06-15 | Outpatient (CLI) | payer MEDICARE ==
[2021-06-15 19:24] LABS: ALT 50 U/L (10-49); AST 58 U/L (14-35); African American GFR (CKD) 46.7 (60.0-200.0); Albumin 4.9 g/dL (3.8-4.9); Albumin/Globulin Ratio 1.79 (1.60-3.17); Alkaline Phosphatase 73 U/L (41-126); Blood Urea Nitrogen 26.7 mg/dL (9.0-27.0); Calcium 9.5 mg/dL (8.7-10.3); Carbon Dioxide 26.1 mmol/L (20.0-27.5); Chloride 104 mmol/L (96-109); Chol/HDL Ratio 3.69 Ratio; Globulin 2.7 g/dL (1.6-3.3); Glucose 112 mg/dL (70-110); LDL Cholesterol,Calculated 75.2 mg/dL (0.0-131.0); Non-African American GFR(CKD) 40.3 (60.0-200.0); Potassium 5.8 mmol/L (3.5-5.5); Sodium 141 mmol/L (135-145); Total Protein 7.7 g/dL (6.2-8.2)
== END | disposition home or self-care (01) ==
LOC: LABWHC1 10:16
PROVIDERS: ATTEND Internal Medicine Interventional Cardiology
DX: E78.2 Mixed hyperlipidemia (principal)
CPT/HCPCS: 36415; 80053; 80061

== ENCOUNTER → 2021-12-14 | Outpatient (CLI) | payer MEDICARE ==
[2021-12-14 18:37] LABS: ALT 32 U/L (10-49); AST 30 U/L (14-35); Albumin 4.7 g/dL (3.8-4.9); Albumin/Globulin Ratio 2.14 (1.60-3.17); Alkaline Phosphatase 59 U/L (41-126); BUN/Creat Ratio 11.64 Ratio (12.00-20.00); Blood Urea Nitrogen 16.3 mg/dL (9.0-27.0); Calcium 9.1 mg/dL (8.7-10.3); Carbon Dioxide 22.8 mmol/L (20.0-27.5); Chloride 110 mmol/L (96-109); Chol/HDL Ratio 3.18 Ratio; Globulin 2.2 g/dL (1.6-3.3); Glucose 96 mg/dL (70-110); LDL Cholesterol,Calculated 51.1 mg/dL (0.0-131.0); Non-African American GFR(CKD) 53.5 (60.0-200.0); Potassium 4.8 mmol/L (3.5-5.5); Sodium 141 mmol/L (135-145); Total Protein 6.9 g/dL (6.2-8.2)
== END | disposition home or self-care (01) ==
LOC: LABWHC1 12:44
PROVIDERS: ATTEND Internal Medicine Interventional Cardiology
DX: E78.2 Mixed hyperlipidemia (principal)
CPT/HCPCS: 36415; 80053; 80061

== ENCOUNTER → 2022-04-07 | Outpatient (CLI) | payer MEDICARE ==
--- NOTE | 2022-04-07 16:14 | US ---
EXAMINATION TYPE: US thyroid st tissue head/neck DATE OF EXAM: 04/07/2022 COMPARISON: NONE CLINICAL HISTORY: R22.1 Localized swelling, mass and lump, neck. Left neck palpable mass that feels e nlarged per patient In the area of palpable concern, left superior neck lateral to submandibular, there are no abnormalit ies visualized. Since patient was not sure if palpable abnormality was definitely felt today, a survey of the left ne ck was performed. No abnormalities in the remainder of the left neck was visualized. IMPRESSION: 1. No suspicious mass or abnormality within the field of view
== END | disposition home or self-care (01) ==
LOC: RADUSWWP 15:21
PROVIDERS: ATTEND Internal Medicine
DX: R22.1 Localized swelling, mass and lump, neck (principal)
CPT/HCPCS: 76536

== ENCOUNTER → 2022-05-02 | Outpatient (CLI) | payer MEDICARE ==
--- NOTE | 2022-05-02 10:26 | CT ---
EXAMINATION TYPE: CT soft tissue neck w con DATE OF EXAM: 05/02/2022 COMPARISON: HISTORY: Localized enlarged lymph nodes-left side CT DLP: 568.3 mGycm CONTRAST: CT scan of the neck is performed with IV Contrast, patient injected with 70 mL of Isovue 300. Contrast enhanced CT of the neck was performed from the skull base through the lung apices. AIRWAY: The supraglottic, glottic, and subglottic portions of the airway appear patent and free of mass. SALIVARY GLANDS: The submandibular and parotid glands are free of mass or inflammatory process. THYROID GLAND: No nodules or masses seen. LYMPH NODES: There are a few subcentimeter lymph nodes about the submandibular regions, left greater than right. No adenopathy seen greater than 1cm. LUNG APICES: No nodule or mass is seen. OTHER: Vascular structures are patent. No significant degenerative change of the cervical spine. N o abscess seen. IMPRESSION: No significant abnormality appreciated.
== END | disposition home or self-care (01) ==
LOC: RADCTMAIN 07:51
PROVIDERS: ATTEND Internal Medicine
DX: R59.0 Localized enlarged lymph nodes (principal)
CPT/HCPCS: 82565; 84520; 70491; 36415; Q9967

== ENCOUNTER → 2022-07-29 | Outpatient (CLI) | payer MEDICARE ==
[2022-07-29 18:18] LABS: ALT 28 U/L (10-49); AST 26 U/L (14-35); African American GFR (CKD) 48.7 (60.0-200.0); Albumin 4.7 g/dL (3.8-4.9); Albumin/Globulin Ratio 2.24 (1.60-3.17); Alkaline Phosphatase 55 U/L (41-126); BUN/Creat Ratio 12.53 Ratio (12.00-20.00); Blood Urea Nitrogen 21.3 mg/dL (9.0-27.0); Carbon Dioxide 24.6 mmol/L (20.0-27.5); Chloride 107 mmol/L (96-109); Chol/HDL Ratio 2.61 Ratio; Globulin 2.1 g/dL (1.6-3.3); Glucose 105 mg/dL (70-110); LDL Cholesterol,Calculated 66.3 mg/dL (0.0-131.0); Potassium 4.8 mmol/L (3.5-5.5); Sodium 144 mmol/L (135-145); Total Protein 6.8 g/dL (6.2-8.2); VLDL Calculation 16.96 mg/dL (5.00-40.00)
== END | disposition home or self-care (01) ==
LOC: LABWHC1 11:24
PROVIDERS: ATTEND Internal Medicine Interventional Cardiology
DX: E78.2 Mixed hyperlipidemia (principal); N18.9 Chronic kidney disease, unspecified
CPT/HCPCS: 36415; 80053; 80061

== ENCOUNTER 2023-07-28 09:47 | Day surgery (SDC) | payer MEDICARE ==
[~2023-07-28 09:47] MED LIST changes: -DEXAMETHASONE SOD PHOSPHATE 10 MG/ML 1 ML VIAL IV ONE; -HYDROmorphone 0.5 MG/0.5 ML SYRINGE IVP PRN; -LACTATED RINGERS 1,000 ML IV SCH; +LIDOCAINE 1% (10MG/ML) FOR IV START INTRADERMA PRN; -LIDOCAINE 1% 20 ML VIAL (10MG/ML) FOR IV START INTRADERMA PRN; -MIDAZOLAM (PF) 2 MG/2 ML VIAL IV PRN; -ONDANSETRON 4 MG/2 ML VIAL IVP ONE; -SCOPOLAMINE 1.5MG/72HR PATCH TRANSDERM ONE; -ceFAZolin IN SWFI 2 GM/20 ML SYRINGE IVP ONE
[2023-07-28] MEDS: LACTATED RINGERS 1,000 ML IV SCH ×2 (10:22→10:30)
[2023-07-28 10:28] LABS: Glucose,Whole Blood 126 mg/dL (70-110)
[2023-07-28 10:30] VITALS: TEMP 97.2
[2023-07-28] MEDS ORDERED: LIDOCAINE 2% (PF) 20 MG/ML 5 ML VIAL ONE (10:30)
[2023-07-28] MEDS ORDERED: PROPOFOL 10 MG/ML 20 ML VIAL IV ONE (10:30)
--- NOTE | 2023-07-28 10:43 | P.PCN ---
Date of Procedure: 07/28/23 Procedure(s) Performed: BRIEF HISTORY: Patient is a 63-year-old, pleasant, white male.scheduled for an upper endoscopy as a part of evaluation of intermittent dysphagia to solids for the last 3 months duration. He feels that his throat area. Long-standing history of GERD and is on omeprazole 20 mg twice daily. In view of the symptoms he scheduled for an upper endoscopy with possible dilation. PROCEDURE PERFORMED: Esophagogastroduodenoscopy biopsy PREOPERATIVE DIAGNOSIS: Intermittent dysphagia to solids for 3 months duration. IV sedation per anesthesia. PROCEDURE: After informed consent was obtained, the patient was brought into the endoscopy unit. IV sedation was administered by Anesthesia under continuous monitoring. Initially the Olympus GIF-140 video endoscope was inserted into the mouth. Esophagus intubated without any difficulty. It was gradually advanced into the stomach and duodenum and carefully examined. The bulb and the second part of the duodenum appeared normal. The scope at this time was withdrawn to the stomach, adequately insufflated with air, and upon careful examination, mucosa of the antrum, and mild gastritis and biopsies were done from this area. Because of the body, cardia and the fundus appeared normal. Moderate amount of retained food noted in the stomach suggestive of gastroparesis. The scope was then withdrawn into the esophagus. Small hiatal hernia noted. The GE junction was located at 39 cm from the incisors. The esophagus appeared normal. There were no erosions or ulcerations seen and no evidence of esophageal stricture. Multiple biopsies were done from the mid and distal esophagus and the patient tolerated the procedure well. IMPRESSION: 1. Normal-appearing esophagus with no evidence of esophagitis or esophageal stricture. 2. Small hiatal hernia 3. Antral gastritis 4. Retained food in the stomach suggestive of gastroparesis. RECOMMENDATIONS: The findings of this examination were discussed with the patient as well as his family. He was advised to follow up with the biopsy results. He'll be seen in office in 3-4 weeks. In the meantime continue with omeprazole 20 mg twice daily and follow antireflux measures..
[2023-07-28 11:01] LABS: Glucose,Whole Blood 107 mg/dL (70-110)
[2023-07-28 11:20] VITALS: BP 105/70; PULSE 71; RESP 15
== END 2023-07-28 11:30 | disposition home or self-care (01) ==
LOC: ORWHC2ENDO 09:47
PROVIDERS: ATTEND Internal Medicine Gastroenterology
DX: K29.50 Unspecified chronic gastritis without bleeding (principal); K44.9 Diaphragmatic hernia without obstruction or gangrene; K21.00 Gastro-esophageal reflux disease with esophagitis, without bleeding
CPT/HCPCS: 88305; 88312; 43239; J2704; J2001

== ENCOUNTER → 2023-08-02 | Outpatient (CLI) | payer MEDICARE ==
[2023-08-02 15:57] LABS: ALT 15 U/L (10-49); AST 24 U/L (14-35); Albumin 3.7 g/dL (3.8-4.9); Albumin/Globulin Ratio 1.68 Ratio (1.60-3.17); Alkaline Phosphatase 78 U/L (41-126); BUN/Creat Ratio 9.91 Ratio (12.00-20.00); Blood Urea Nitrogen 10.9 mg/dL (9.0-27.0); Calcium 9.1 mg/dL (8.7-10.3); Carbon Dioxide 25.4 mmol/L (21.6-31.8); Chloride 108 mmol/L (96-109); Globulin 2.2 g/dL (1.6-3.3); Glucose 112 mg/dL (70-110); LDL Cholesterol,Calculated 41.1 mg/dL (0.0-131.0); Potassium 4.4 mmol/L (3.5-5.5); Sodium 144 mmol/L (135-145); Total Bilirubin 0.2 mg/dL (0.3-1.2); Total Protein 5.9 g/dL (6.2-8.2)
== END | disposition home or self-care (01) ==
LOC: LABWHC1 09:48
PROVIDERS: ATTEND Internal Medicine Interventional Cardiology
DX: E78.2 Mixed hyperlipidemia (principal)
CPT/HCPCS: 36415; 80053; 80061